=== PATIENT | male | born 1945 | race Caucasian/White ===

== ENCOUNTER 2023-04-17 09:43 | Outpatient (OUT) | payer OTHER, SELFPAY ==
[2023-04-17 10:48] LABS: Estimated GFR (African America >60 (>=60); Estimated GFR (Non-African Ame >60 (>=60)
--- NOTE | 2023-04-17 11:29 | CT_ITS ---
[address] [address] Patient Name: NICHOLE ALBA MRN: [id number] date: 1945 Sex: M Assigned Patient Location: LAB Current Patient Location: LAB Accession/Order Number: [id number] Exam Date: 04/17/2023 11:08 Report Date: 04/17/2023 12:29 At the request of: NON-STAFF PHYSICIAN Procedure: CT abdomen pelvis wo/w con EXAMINATION: CT abdomen pelvis wo/w con HISTORY: Hematuria R31.29, BPH w/urinary obstruction N40.1 COMPARISON: No relevant comparison available. TECHNIQUE: Axial, Coronal, and Sagittal images were created without and with non-ionic intravenous contrast material. Dose reduction techniques were achieved by using automated exposure control and/or adjustment of mA and/or kV according to patient size and/or use of iterative reconstruction technique. FINDINGS: LUNG BASES: Minimal dependent atelectasis. LIVER: No enlargement, atrophy, abnormal density, or significant focal lesion. BILIARY: No dilatation or calcification. PANCREAS: No lesion, fluid collection, ductal dilatation, or atrophy. SPLEEN: No enlargement or focal lesion. ADRENALS: No mass or enlargement. KIDNEYS: No mass, obstruction, or calcification. BOWEL/MESENTERY: Moderate colonic diverticulosis without evidence of acute diverticulitis. Nonobstructive bowel gas pattern. Normal appendix. AORTA/VASCULAR: No aortic aneurysm. Mild atherosclerosis RETROPERITONEUM: No mass or adenopathy. LYMPH NODES: No adenopathy. URINARY BLADDER: No visible focal wall thickening, lesion, or calculus. PELVIC ORGANS: No visible mass. Pelvic organs appropriate for patient age. ABDOMINAL WALL: No mass or hernia. BONES: No bony lesion or fracture. OTHER: Negative. IMPRESSION: No explanation for the patient's hematuria Moderate colonic diverticulosis Electronically authenticated by: LUPILLO SKELTON Date: 04/17/2023 12:29
[2023-04-18 04:07] LABS: PSA, Free 0.25 ng/mL; Prostate Specific Ag 4.5 ng/mL (0.0-4.0)
== END 2023-04-17 09:44 ==
LOC: LAB 09:43
PROVIDERS: PCP Nurse Practitioner Family
DX: R31.29 Other microscopic hematuria (principal); R97.20 Elevated prostate specific antigen [PSA]; Z80.42 Family history of malignant neoplasm of prostate; N40.1 Benign prostatic hyperplasia with lower urinary tract symptoms; K57.30 Diverticulosis of large intestine without perforation or abscess without bleeding
CPT/HCPCS: 36415; 74178; 82565; 84153; 84154; Q9967

== ENCOUNTER 2023-12-14 07:48 | Outpatient (OUT) | payer OTHER, SELFPAY ==
[2023-12-14 08:09] LABS: Hematocrit 46.1 % (42.0-54.0); Hemoglobin 14.9 g/dL (14.0-18.0); Mean Corpuscular HGB Conc 32.3 g/dL (29.9-35.2); Mean Corpuscular Hemoglobin 30.5 pg (25.9-34.0); Mean Corpuscular Volume 94.5 fL (80.0-94.0); Mean Platelet Volume 9.9 fL (9.5-13.5); Platelet Count 207 10^3/uL (150-450); Red Blood Count 4.88 10^6/uL (4.70-6.10); Red Cell Distribution Width 13.2 % (11.0-15.0); White Blood Count 18.3 10^3/uL (4.0-11.0)
[2023-12-14 08:37] LABS: Atypical Lymphocytes Abs Man 0.91; Basophils Abs Manual 0.18 10^3/uL (0.00-0.10); Eosinophils Absolute Manual 0.18 10^3/uL (0.00-0.70); Lymphocytes Absolute Manual 10.06 10^3/uL (1.20-3.80); Monocytes Absolute Manual 1.64 10^3/uL (0.30-0.80)
[2023-12-14 08:44] LABS: Alanine Aminotransferase 25 U/L (16-63); Alkaline Phosphatase 60 U/L (46-116); Anion Gap 14.9; Aspartate Amino Transferase 21 U/L (15-37); Bilirubin Total 1.1 mg/dL (0.2-1.0); Calcium 9.5 mg/dL (8.5-10.1); Carbon Dioxide 26.3 mmol/L (21.0-32.0); Chloride 103 mmol/L (98-107); Chol HDL Ratio 2.9; Cholesterol 182 mg/dL (<=200); Estimated GFR (African America >60 (>=60); Estimated GFR (Non-African Ame >60 (>=60); Globulin 3.9 g/dL; Glucose 94 mg/dL (74-106); HDL Cholesterol 63 mg/dL (40-60); Potassium 4.2 mmol/L (3.5-5.1); Sodium 140 mmol/L (136-145); Thyroid Stimulating Hormone 2.561 uIU/mL (0.358-3.740); Total Protein 7.9 g/dL (6.4-8.2); Triglycerides 67 mg/dL (<=150); VLDL CHOLESTEROL 13.4 mg/dL
== END 2023-12-14 07:49 | disposition home or self-care (01) ==
LOC: LAB 07:48
PROVIDERS: PCP Nurse Practitioner; Visit Provider Nurse Practitioner
DX: Z00.00 Encounter for general adult medical examination without abnormal findings (principal); R53.83 Other fatigue; R63.4 Abnormal weight loss; R10.32 Left lower quadrant pain; Z13.220 Encounter for screening for lipoid disorders; Z13.29 Encounter for screening for other suspected endocrine disorder; Z87.891 Personal history of nicotine dependence; Z68.23 Body mass index [BMI] 23.0-23.9, adult
CPT/HCPCS: 36415; 80053; 80061; 84443; 85007; 85027

== ENCOUNTER 2023-12-16 13:50 | Emergency (ER) | payer OTHER, SELFPAY ==
[2023-12-16] VITALS (34 sets, daily range): BP systolic 117–146; BP diastolic 68–92; PULSE 89–110; RESP 14–36; TEMP 36.9; O2SAT 83–98; BMI 22.4
--- OUTSIDE RECORDS SUMMARY | 2023-12-16 13:58 | XMS_ITS | CCD ---
Author Name Unknown Address [address] [facility] [address] [place] [address] Organization [facility] Care Team Providers Care [employer] Name Role Phone KIRSTIE CALDERÓN Primary Care Physician [phone] ARVIND, ROSENDA Admitting Unavailable KAITLYNN, KIRSTIE Primary Care Unavailable ARVIND, ROSENDA Attending Unavailable HOY, DR ORDAZ Attending Unavailable HOY, DR ORDAZ Consulting Unavailable MARIAM, DR ORDAZ Admitting Unavailable KAITLYNN, KIRSTIE Primary Care Unavailable KAITLYNN, KIRSTIE Primary Care Unavailable ANTHONY DOLAN, DR VIDYA Rice Attending Unavailtracee CRUZ JR, DR VIDYA Rice Consulting Unavailtracee CRUZ JR, DR VIDYA Rice Admitting Unavailabl e NickiMary Kate london Attending Unavailable WANG, Buddy Kasper Attending Unavailable ARVIND, ROSENDA Valderrama Attending Unavailable ARVIND, ROSENDA E Attending Unavailable ARVIND, ROSENDA E Attending Unavailable WANG, Buddy R Attending Unavailable WANG, Buddy R Admitting Unavailable ARVIND, ROSENDA E Admitting Unavailable ARVIND, ROSENDA E Attending Unavailable ARVIND, ROSENDA E Admitting Unavailable ARVIND, ROSENDA E Attending Unavailable Allergies Allergy Classification Reported Allergen(s) Allergy Type Date of Onset Reaction(s) Facility (1 source) No Known Medication Allergies; Translations: [No Known Medication Allergies] Propensity to adverse reactions (disorder) [facility] Repository Medications Completed/Discontinued Medications Medication Drug Class(es) Dates Sig (Normalized) Sig (Original) ciprofloxacin 500 mg oral tablet (2 sources) Quinolone Antimicrobial Start: 03-30-2023 take 1 tablet by mouth once daily Cipro 500 mg Tab 500 mg = 1 tab(s), Oral, Daily, Take 1 tablet the day before the procedure and 1 tablet after the procedure, # 2 tab(s), Refills(s) 0, Pharmacy: [facility]/pharmacy #[id number], 180, cm, 01/24/23 9:26:00 EDT, Height/Length Dosing, 75, kg, 01/24/23 9:26:00 EDT, Dc... Start Date: 03/30/23 Status: Ordered Problems Active Problems Problem Classification Problem Date Documented Date Episodic/Chronic Esophageal disorders (7 sources) Gastroesophageal reflux disease 02-12-2021 Chronic Genitourinary symptoms and ill-defined conditions (10 sources) Microscopic hematuria; Translations: [Other microscopic hematuria] Onset: 01-26-2022 Episodic Hyperplasia of prostate (9 sources) Benign prostatic hypertrophy with outflow obstruction; Translations: [Benign prostatic hyperplasia with lower urinary tract symptoms] Onset: 01-26-2022 Chronic Mood disorders (7 sources) Depressive disorder 02-12-2021 Chronic Other diseases of kidney and ureters (1 source) Urinary tract obstruction; Translations: [Other obstructive and reflux uropathy] Onset: 04-18-2023 Episodic Other screening for suspected conditions (not mental disorders or infectious disease) (15 sources) Raised prostate specific antigen; Translations: [Elevated prostate specific antigen [PSA]] Onset: 01-19-2022 Episodic Residual codes; unclassified (3 sources) Family history of cancer; Translations: [Family history of malignant neoplasm of prostate] Onset: 01-26-2022 Episodic Residual codes; unclassified (7 sources) Family history of prostate cancer 01-26-2022 Episodic Unclassified (3 sources) CONTACT W/AND (SUSP) EXPOS COVID-19; Translations: [CONTACT W/AND (SUSP) EXPOS COVID-19] Onset: 10-06-2021 Past or Other Problems Problem Classification Problem Date Documented Da te Episodic/Chronic Unclassified (1 source) CONTACT W/AND (SUSP) EXPOS COVID-19; Translations: [CONTACT W/AND (SUSP) EXPOS COVID-19] Onset: 10-01-2021 Results Test Name Value Interpretation Reference Range Facility [facility] 12-14-2023 Lab Reports [id number] .00TIFF Normal [facility] Ambulatory Visit Summaryon 0 12-12-2023 Ambulatory Visit Summary NICHOLE ALBA :1945 Visit Date:12/12/2023 Ambulatory Visit Instructions Your Diagnosis Wellness examination Screening for hyperlipidemia BMI 23.0-23.9, adult Former smoker Screening for thyroid disorder Fatigue Weight loss LLQ pain Your Care Team Attending Physician - Mary Kate Hester Primary Care Physician - Mary Kate Hester Procedures Performed Cystoscopy (04/18/2023), Tonsillotomy. Discharge Vitals Temperature (Tympanic) 36.9 ?C Heart Rate (Peripheral) 82 Respiratory Rate 18 Blood Pressure 118/80 Height 168.5 cm Height 66 in Weight 66.4 kg Weight 146.08 lb BMI 23.39 What to do next Scheduled Follow-Up Appointments Monday 8:40 AM EDT With: ARVIND CHANG, ROSENDA Valderrama Where: [facility] Family Medicine Office/Clini c Noteon 12-12-2023 Family Medicine Office/Clinic Note HPI Staff Braswell is a 78 year old male presenting to establish care Establish Care: History: Any previous diagnosis: BPH, depression, Gerd History of seeing any specialist: Dr velasquez-Urology When was your last doctors visit: Last provider: Kirstie Calderón Any recent labs: [facility] 1 year ago Health Maintenance UTD: Colonoscopy: no PSA: PSA Total: 4.1 ng/mL High (01/23/23 11:05:00) Acute: Current issues/complaints: Left ear having constant feeling of fullness to left ear. Pt states has had intermittent ear infections. Did have referral for ENT but something happened with his insurance so he was never able to go. Has new insurance. Pt would like to see ENT someone close to [place] GI: Onset 10 days ago started to having LLQ intermittent discomfort denies any nausea/diarrhea does c/o some constipation. Since has had intermittent low grade fever. Pt states he has lost 5 pounds over the last 2-3 weeks stopped exercising he feels fatigued all the time. Has been eating normally. Pt has never had a colonoscopy. History of Present Illness pt presents today to establish care. pt has c/o left ear feeling full. also for about 10 days having LLQ pain, fatigue, weight loss Review of Systems PHQ Score Initial Depression Screen Score: 0 SCORE ROS - Provider Constitutional: no fever, no chills, no sweats, no fatigue Respiratory: no shortness of breath, no cough, no orthopnea, no wheezing., left ear feels full Cardiovascular: no chest pain, no palpitations, no edema. Neurologic: no headache, no dizziness, no numbness, no weakness. GI: bloating, LLQ pain, constipation, weight loss Physical Exam Vitals & Measurements T: 36.9 ?C(Tympanic) HR: 82(Peripheral) RR: 18 BP: 118/80 SpO2: 99% HT: 66 in HT: 168.5 cm WT: 66.4 kg WT: 146.08 lb BMI: 23.39 General: alert, no acute distress ENMT: oral mucosa moist, no pharyngeal erythema or exudate Cardiovascular: regular rate and rhythm, normal peripheral perfusion Respiratory: Lungs CTA, respirations non labored Extremities: no deformity, no trauma Neurological: oriented x 4, LOC appropriate for age, CN II-XII intact, motor strength equal & normal bilaterally, speech normal Assessment/Plan 1. Wellness examination (Z00.00: Encounter for general adult medical examination without abnormal findings) pt presents today for wellness visit. labs ordered. is followed by Dr. Wang for PSA. pt has a few complaints today. pt will have labs done at a self pay lab and have results faxed to our office. RTC 3 months Ordered: ciprofloxacin, 500 mg = 1 tab(s), Oral, q12hr, X 7 day(s), # 14 tab(s), Refills(s) 0, Pharmacy: [facility]/pharmacy #[id number], 169.5, cm, 12/12/23 9:37:00 EST, Height/Length Dosing, 66.4, kg, 12/12/23 9:37:00 EST, Weight Dosing metronidazole, 500 mg = 1 tab(s), Oral, q8hr, X 7 day(s), # 21 tab(s), Refills(s) 0, Pharmacy: [facility]/pharmacy #[id number], 169.5, cm, 12/12/23 9:37:00 EST, Height/Length Dosing, 66.4, kg, 12/12/23 9:37:00 EST, Weight Dosing CBC w/ Auto Diff Comprehensive Metabolic Panel Lipid Panel Thyroid Stimulating Hormone 2. Cerumen impaction (H61.20: Impacted cerumen, unspecified ear) pt will use debrox for 1 week and return for nurse visit. if still feeling ear pressure after irrigation will refer to ENT. pt was supposed to be referred to ENT by previous PCP but something didn't go through with insurance and he never went. 3. Fatigue (R53.83: Other fatigue) pt c/o fatigue. does not even want to exercise anymore. Lab orders provided Ordered: ciprofloxacin, 500 mg = 1 tab(s), Oral, q12hr, X 7 day(s), # 14 tab(s), Refills(s) 0, [id number] 169.5, cm, 12/12/23 9:37:00 EST, Height/Length Dosing, 66.4, kg, 12/12/23 9:37:00 EST, Weight Dosing metronidazole, 500 mg = 1 tab(s), Oral, q8hr, X 7 day(s), # 21 tab(s), Refills(s) 0, [id number], 169.5, cm, 12/12/23 9:37:00 EST, Height/Length Dosing, 66.4, kg, 12/12/23 9:37:00 EST, Weight Dosing CBC w/ Auto Diff Comprehensive Metabolic Panel [facility] [place]ulatory Referral Lipid Panel Thyroid Stimulating Hormone 4. LLQ pain (R10.32: Left lower quadrant pain) pt c/o LLQ pain for about 10 days, also having low grade fever. Ordered: ciprofloxacin, 500 mg = 1 tab(s), Oral, q12hr, X 7 day(s), # 14 tab(s), Refills(s) 0, [id number], 169.5, cm, 12/12/23 9:37:00 EST, Height/Length Dosing, 66.4, kg, 12/12/23 9:37:00 EST, Weight Dosing metronidazole, 500 mg = 1 tab(s), Oral, q8hr, X 7 day(s), # 21 tab(s), Refills(s) 0, Pharmacy: [facility]/pharmacy #[id number], 169.5, cm, 12/12/23 9:37:00 EST, Height/Length Dosing, 66.4, kg, 12/12/23 9:37:00 EST, Weight Dosing CBC w/ Auto Diff Comprehensive Metabolic Panel [facility] [place] Referral Lipid Panel Thyroid Stimulating Hormone 5. Weight loss (R63.4: Abnormal weight loss) see above Ordered: ciprofloxacin, 500 mg = 1 tab(s), Oral, q12hr, X 7 day(s), # 14 tab(s), Refills(s) 0, Pharmacy: [facility]/pharmacy #[id number], 169.5, cm, 12/12/23 9 (more content not included)... Normal [facility] Comment on above: Result Comment: Elec tronically Signed By: Mary Kate Hester\.br\Date and Time Signed: 12/12/23 11:15 EST Physician Referralon 024 Physician Referral [id number]# 1.00TIFF Normal [facility] UroVysion Fish and Urine Cyt o ([facility])on 04-25-2023 UVFISH & UC Diagnosis Info Invalid Interpretation Code [facility] Comment on above: Result Comment: A:Ur ine,Urine:Bladder Wash Diagnosis Summary - Atypical urothelial cells with degenerative changes. Clinical correlation and follow up is recommended as clinically indicated. Adequate cellularity for evaluation. Diagnosis Summary - The UroVysion FISH study detected normal copy numbers for chromosomes 3, 7, 17, and 9p21. 196 cells were analyzed in this evaluation. No evidence of aneuploidy for chromosomes 3, 7, or 17 or deletion of the 9p21 locus was found in cells present in this specimen. This test does not rule out the possibility of a low grade non-invasive papillary urothelial carcinoma. These findings should be correlated with cytology and cystoscopy results.* CPT 37795, 64586. Microscopic Notes - Microscopic Notes - Abnormal cells 9p21 deletions: Abnormal cells aneploid events: Total cells analyzed: 196 Hematuria: Gross Description Site ID:A color Light Yellow fixative Alcohol Received 110 mls of clear light yellow fluid with the patient's name and, Urine on the vial. Electronically signed by : on: 04/25/2023 12:43:44 Performed By: #### 1 [id number] ####[facility] [id number] [place] [address] Consent for Procedure/Surger yon 04-19-2023 Consent for Procedure/Surgery [id number]# 1.00CD:127 Normal [facility] Patient Educationon 04-18-20 Patient Education Urology Hematuria, Adult Hematuria is blood in the urine. Blood may be visible in the urine, or it may be identified with a test. This condition can be caused by infections of the bladder, urethra, kidney, or prostate. Other possible causes include: ? Kidney stones. ? Cancer of the urinary tract. ? Too much calcium in the urine. ? Conditions that are passed from parent to child (inherited conditions). ? Exercise that requires a lot of energy. Infections can usually be treated with medicine, and a kidney stone usually will pass through your urine. If neither of these is the cause of your hematuria, more tests may be needed to identify the cause of your symptoms. It is very important to tell your health care provider about any blood in your urine, even if it is painless or the blood stops without treatment. Blood in the urine, when it happens and then stops and then happens again, can be a symptom of a very serious condition, including cancer. There is no pain in the initial stages of many urinary cancers. Follow these instructions at home: Medicines ? Take llvo-sko-aaeurpy and prescription medicines only as told by your health care provider. ? If you were prescribed an antibiotic medicine, take it as told by your health care provider. Do not stop taking the antibiotic even if you start to feel better. Eating and drinking ? Drink enough fluid to keep your urine pale yellow. It is recommended that you drink 3?4 quarts (2.8?3.8 L) a day. If you have been diagnosed with an infection, drinking cranberry juice in addition to large amounts of water is recommended. ? Avoid caffeine, tea, and carbonated beverages. These tend to irritate the bladder. ? Avoid alcohol because it may irritate the prostate (in males). General instructions ? If you have been diagnosed with a kidney stone, follow your health care provider's instructions about straining your urine to catch the stone. ? Empty your bladder often. Avoid holding urine for long periods of time. ? If you are female: ? After a bowel movement, wipe from front to back and use each piece of toilet paper only once. ? Empty your bladder before and after sex. ? Pay attention to any changes in your symptoms. Tell your health care provider about any changes or any new symptoms. ? It is up to you to get the results of any tests. Ask your health care provider, or the department that is doing the test, when your results will be ready. ? Keep all follow-up visits. This is important. Contact a health care provider if: ? You develop back pain. ? You have a fever or chills. ? You have nausea or vomiting. ? Your symptoms do not improve after 3 days. ? Your symptoms get worse. Get help right away if: ? You develop severe vomiting and are unable to take medicine without vomiting. ? You develop severe pain in your back or abdomen even though you are taking medicine. ? You pass a large amount of blood in your urine. ? You pass blood clots in your urine. ? You feel very weak or like you might faint. ? You faint. Summary ? Hematuria is blood in the urine. It has many possible causes. ? It is very important that you tell your health care provider about any blood in your urine, even if it is painless or the blood stops without treatment. ? Take jkov-jvp-hpuaqxj and prescription medicines only as told by your health care provider. ? Drink enough fluid to keep your urine pale yellow. This information is not intended to replace advice given to you by your health care provider. Make sure you discuss any questions you have with your health care provider. Document Revised: 06/16/2021 Document Reviewed: 06/16/2021 [employer] Patient Education ? 2022 [employer] Normal [facility] RAD - CT Reporton 04-18-2023 RAD - CT Report [id number] .00CD:127 Normal [facility] UroVysion Fish and Urine Cyt o ([facility])on 04-18-2023 [facility] Method of Extraction Bladder Wash Normal [facility] Comment on above: Performed By: #### 1 [id number] ####[facility] [id number] [place] [address] [facility] Number of Jars 1 Invalid Interpretation Code [facility] Comment on above: Performed By: #### 1 [id number] ####[facility] [id number] [place] [address] [facility] Specimen Bladder Wash Normal [facility] Comment on above: Performed By: #### 1 [id number] ####[facility] [id number] [place] [address] [facility] Type of Service Technical Only Normal [facility] Comment on above: Performed By: #### 1 [id number] ####[facility] [address] [place] [address] Urology Office/Clinic Noteon 04-18-2023 Urology Office/Clinic Note Chief Complaint Cysto HPI Staff Cysto ABX TAKEN, needs fish/cytol History of Present Illness Tests reviewed: PSA, CT Urogram I have reviewed the previous health record information and history for this patient from Dr. Wang. I have reviewed and verified the staff HPI to be accurate for this encounter. There have been no associated fever, chills, flank pain, or blood in the urine. Denies any urinary infections since last encounter. Review of Systems PHQ Score Initial Depression Screen Score: 0 ROS - Provider Constitutional: denies weight loss, denies hot flashes. Eyes: denies eye problems. Gastrointestinal: denies nausea, denies vomiting. Cardiovascular: denies chest pain or angina. Integumentary: no dryness Musculoskeletal: denies musculoskeletal symptoms. ENMT: denies otolaryngeal symptoms. Respiratory: no shortness of breath. Heme/Lymph: denies easy bleeding tendency, denies easy bruising tendency. Psychiatric: no confusion, no anxiety. Genitourinary: denies dysuria, denies hematuria, denies discharge, denies urinary frequency, denies urinary hesitancy, denies nocturia, denies incontinence, denies genital sores, denies decreased libido, and denies erectile dysfunction. Physical Exam Vitals & Measurements HR: 84(Peripheral) BP: 137/79 HT: 71 in HT: 180 cm WT: 75 kg WT: 165 lb BMI: 23.15 General Appearance: alert, no distress, well nourished, well developed male. Genitourinary: normal scrotum, normal testes, normal urethra, normal epididymis, normal vas deferens/spermatic cord. Flank Pain: none. Bladder: nonpalpable. Procedure Operative Information Anesthesia Type: Local Procedure: Local Cystoscopy Complications: None Surgical risks, benefits, details of the procedure have been explained to the patient. Full informed consent has been obtained. Intraoperative Information Prepped: Patient is brought back to the endoscopy suite. Patient is placed in supine position. Patient prepped in the usual fashion with Betadine solution. 2% Xylocaine Jelly is placed per Urethra. After waiting several minutes, the Cystoscope is introduced. The Prostatic Urethra is: bilobar obstruction, short. The Bladder: no bladder tumors _, Trabeculated: low-grade_ The Ureteral orifices: Show efflux of clear urine Specimens Removed: Bladder wash sent for FISH and Cytology test Removal: Cystoscope is removed. The patient tolerated it well. Postoperative Information Patient is discharged home with antibiotic coverage. Follow up arranged. Assessment/Plan 1. Elevated PSA (R97.20: Elevated prostate specific antigen [PSA]) PSA 01/23/2023 - 4.1 01/19/2022 - 3.8 (5.5%) 08/24/2021 - 4.53 01/29/2021 - 3.6 (6.7%) 07/25/2020 - 3.7 (6.8%) 07/13/2020 - 5.05 07/03/2020 - 6.41 -Will continue to monitor Follow up in 1 year with PSA with [facility] or sooner if needed. Pt understands and agrees with plan. 2. Family hx of prostate cancer (Z80.42: Family history of malignant neoplasm of prostate) Brother recently diagnosed with prostate CA 3. BPH with obstruction/lower urinary tract symptoms (N40.1: Benign prostatic hyperplasia with lower urinary tract symptoms) Pt is not currently taking any bladder/prostate medication. 4. Microhematuria (R31.29: Other microscopic hematuria) Pt was a smoker x 20 yrs but quit almost 40 yrs ago. UA at previous visit 01/24/23 showed large blood. Micro UA was positive. CT AP w/ and w/o contrast 04/17/23 - no renal mass, obstruction, or calcification; no visible focal wall thickening, lesion, or calculus Pt had cysto done IO today w/ no complications. Other obstructive and reflux uropathy (N13.8: Other obstructive and reflux uropathy) Follow-up No qualifying data available Patient Education Hematuria, Adult I, Veronica Bradley, personally scribed for Dr. Wang on 04/18/2023 14:54:00. . Documentation recorded by the ramosibVeronica valderrama, accurately reflects the services(s) I performed and decisions made by me. Authenticated by Dr. Wang on 04/18/2023 14:55:16. Problem List/Past Medical History Ongoing BPH with obstruction/lower urinary tract symptoms Depression Elevated PSA Family hx of prostate cancer GERD (gastroesophageal reflux disease) Microhematuria Historical No qualifying data Procedure/Surgical History Cystoscopy (04/18/2023), Tonsillotomy. Medications Cipro 500 mg Tab, 500 mg= 1 tab(s), Oral, Daily Allergies No Known Medication Allergies Social History Alcohol - Low Risk, 02/16/2021 Tobacco Former smoker, quit more than 30 days ago Tobacco Use:. Never Smokeless Tobacco Use:., 04/18/2023 Family History Cancer: Father. Hypertension: Brother. Prostate cancer: Brother. Immunizations Vaccine Date Status Comments SARS-CoV-2 (COVID-19) mRNAMUL.ORD![id number] 07/15/2022 Recorded SARSCoV2 mRNA(ykgyujaxz-beqw-y ucros) vac 02/14/2022 Recorded SARS-CoV-2 (COVID-19) mRNA BNT-162b2 vax (more content not included)... Normal [facility] Comment on above: Result Comment: Elec tronically Signed By: Buddy WANG MD\.br\Date and Time Signed: 04/18/23 14:55 EDT\.br\Electronically Co-Signed By: Veronica Bradley\.br\Date and Time Co-Signed: 04/18/23 14:54 EDT Coding Summary.on 01-28-2023 Coding Summary. CD:[id number] W w+PGhlYWQ+VM7IIXOuS18 fhYIyqR6vZ6LEWAsKYfea RIRZAHfRVuWzmiEoYO5vh XNjZXJu IC8+NX0wYNYpJqhqpHApt 9H4gUN6I94wkz4wSJwxtQ I8TZPyUcRgvemqb6tmlIa 6IDcuNmluOyBt GJZimH41PWZ1dZ70Vv04s IWemMClr6vphFk6YnRqSK VqFAC7nGieQOaxl1RlTIJ tB67qbALlv7I1 FOOnrVcxoYSsDpEkmKJ3p R4lWGksefakx7khtxhwGz i1va97lHYgo2K0iBX5C0L okhF7UEKrfEUx EgbbgHWJuL9jnkwte8six frbDfBjOSYuIVj5BCw7KC ChzRnuImRnAV79QFP8BZQ svzDjN0ZqYKZp oOubPwU1r4Q7Xo0MW5GAB jzsX2XXKAIHCQhnaMJ+PC 66hd39H9YcLqobMsm2GVD kCPE1eBH0pU6u WXGjZQsdd4X0wWG0Z6Uir lMfwp3ty8uqMIOtIIzsW9 6vtGRck5W3RKEtvHI0DVD obNqzUrVvlY02 Oyc+HSEylCbbr3IxPzsmp 4pia5dzaIm9FgcmWCZrwm ScbEynYLJ8r9FoRr3wICN orZN7bQZ1mX5o NjEcLkE0AIzpG863UxGdu OInRfgiF23jD8YleLF+PH RrAbq4UYIpoJhjVD4fE9Q hZGRpbmctbGVm tNzaDA3rSLNwaaivNVGua J5eECRnE8e3JqMdLxQ1GN wrK0DuJOTshxweJg56cF8 wMtFqOyM7YKtx X2AkvvJ3BXWmpCHhNZjoG YU1Z53kn1M7OQDgHZKaEB Y1uKI8qV7wzFqysjtdrOA mdDsgdmVydGlj UZkqLWclU332FHFurXlbG kNvZGluZyBEYXRlOiAgMD QvMDEvMjAyMzwvdGQ+PHR rFCE4iZvbAYGw jJKsNHezEi1jfHncrTmtJ P1dCNCmowvhZINozH8sSC IdoLGskLnqKQ0qYPNcyjo ms453LbRyQSY2 JVKtuBXxN8YrqO7hVlCkA DYbLMBuJ2AmpDBmZVscZ5 80OMgkKdI4XTDfsrAnZ0I sLWFsaWduOiB0 r7R4Lf4Wk7UjlbqxQ4Pzg NDpJzZwEwiqBAz7U3PqIk wvdHI+WL09OUTsMY93SSw 1EOC5uMgcRAgm CKLuL5BtrA4hEcIyIUGlS GRkOyc+PHRhYmxlIHdpZH RoPScxMDAlJyBzdHlsZT0 cBm5vZUHnZJGq uVzcfOCgZdUpo9zeYVNdG DzeKR8rbOwgH6KxpMR5BP Qdt5f6Zy74B72iP2ApkJF +CLKvdJE0kWE3 gZ9qHaOzFpW4VGvhK311F oIvtHUoXzoih9rrb7wckJ x5PnE9AHWatzGkfQsgWOU 8v4GzHl81G17n IHdpZHRoPSIxNSUiIHZhb Cjnkm4cxN4lPa8+PGNvbC S9fBA2kI3bFbCsQtH6DLl xN996KeFmhZFa Pagdj0wha1qyyNn4LfMeB VJfrnZvgCasPHN1q6MyZy 69A2DqvRlsp7LfIyx0ne9 0cUTxz4F1gLK2 Z6UeVRRxzrydrJXrgTjaQ K4vKUKlioiqQRNauU3uIH TwE6v5NvEcRjT9UGclL2C dtkK8JFJnvCLj OKRqkHSHnZ3jlhdnh3qzq lgzMeWwZERzOGu7LTy6HZ IihUzlCoOmLZG1SzY3THI 0yICjvT9rwYpj rjfhiJ5dUfv+WFO6sEYej VFHZV3iWzctgDY+PHRkIH V7mAemZPodUYLdeO7bTUR lY5t7XfXlHjD2 GXxhT7TqebT2KHEloPWwM QPokYTCcA0mdfzmk4liro vrRfOzIOXzNRq1KRg6UQK saWduOiBsZWZ0 TmL9PVI0cDEhmZ8beGrfl jdkaC2nEsi+QmlydGggRG J8FBf7F7YjDov4YRZchSo dGX7bkUBrUVyi Ph7jqVwtfCzbGQ5kXNRaf pryr816YyDue5bmOJYnjQ EuBQhhIYX2M96jr3X1YWE fSDMfMDN5eSY1 vM5fqFxkphyejMEsdMkvv tEfxEntYTffVIjdH888PC IvmBgdHeXsDOw4L8CnSvk 1HWAqgDgnWC1p nZOiJObzYi0lkFojzFniY G2kIMRapnrwb618DbKac6 mgPUWgtLZzKUvfTCS7D67 xn5U2YAAdLWLb DDL7xAQ8jN1frGaxlaxwc GVmdDsgdmVydGljYWwtYW vyT821OWBfsIcwEqFcyTm 6S2MzQjq2UEAx tShcJO0qiTDdNQsiLy3rw ArgkAiuDM4lOJBhwiepy5 02OoCmh0ajIOYsnUSbVAu pJKE3D65rg3Y0 XTHsUPLkXHU7hFZ4iI6zh GlnbjogbGVmdDsgdmVydG ovQRghVKihC843MEGzfMs nPlBhdGllbnQg GRxlEPp7O7WlHqzxeJO+P G09QZXiZC97eANisKRmp6 qssAi4OyBkMRVnPJI6dTu wJZtga5HiLPRi S43pvLWol5V2UALfsLonr NVeAjNkdWA2zE2uHDfrzh tga2jwcqjnIdmpc3lqae7 8mW80Z69qWYgo ZHRoPSIzMCUiIHZhbGlnb v3piE1nPs5+YQFmpXU8oZ E9zL4pPJYyOdD4ONzmW62 9InRvcCIvPjxj b0ewt5fmoQa1UfX1IUMog qYwhYbnCNE1t8KsPj50H0 9sIHdpZHRoPSIyMCUiIHZ itLdzof6cfF4x Ii8+VFPhrSE1wMQ7zI2qD iIwEnS4XZidL916TrVygO MrNnduS99aN1KwuCD+PHR rWrt2MUCxzJgb ZS6etROwFWvcOe1hYVS4Q bCnCdOxSJerQ3TuWMOmrh psjwufmAA7MJHlDCPeaQ5 4Cg5pbMjeJEYa iJAHlG6aplrrf8azxgapX nWcKFPpEXk6BXs5BPPlqB rvLlHkDZQ1WsZ3JAR0fGE syN1xhHxqkbzb iE6uB3PzPOCircciOn19h Y2xJbJnMyB7PMszKdn+Q1 VEZ0fJDWIVIBCESBNLXLM 6X6FdZgk9XTTs zBqnBQ1nsANmOLtvDn9fq GbxoRutJY9mKBOxpkprDG NqzV1iKVVdcGUsiAieNT3 iTVMqtodzw798 IhEhDLV6YZIynDPlI1Jtq M0bBxOnAZEdSCKzW2JudA ClMXumZ392QCkgGzL4PYC bhpFxW3AoWJFx bWzwWwY2f3I1Xf2kDs8lS A6vXZY5KA29TH62mDClt0 R8hEI9R3QbUZAhntacpkd auXR2XVGdOGAz bE60gNIiSHmxFr2yr9U5w 532JLGkOKNzcY56Gp4mqK hmFZCjeBYYuN8iyabhv4v vcjogIzAwMDAw CTs6SPo2FLYypXetXqQdP DR8JeO4YHA8rLFmfW8kjK trabhfvF9aUof+NzUgWWV ysjM4Q4RaPbp2 EWSxrFkaHD6pkSUmNIzbO u2mySxlnXsoWM8zAOWzbi hjNYNdgX5aDUDouGKfqQg lST8mPYGluoqa r980YaRxAQW0EROhtMPbS 5IogH0jOdOlJMCpVRHtO3 RfsKVdLFwfQ878SSwyQdA 4HDNssiTsE8Gd BYNruUpzKdE3t0O9Tj2JS HcfFD45QX37gLZeg7I6jG I8D5IzJWPvijfhcmxqtDO 1GAQqYCImoS56 gZWvORkwOi1zf0M8l545L SUtMOTfsK10Uz4ysYesAR BujCMWsD3ubxpvl5pjnvz gIzAwMDAwMDt0 RNk4QHQjqAenKhIeIWX0J nH7LDN9mAOztG0paEabox wooQ4mGzv+DIScKCHcj6L im4GnGS66HW75 U5TmBganpKWeiIK+PHRhY mxlIHdpZHRoPScxMDAlJy DkqDkgFO1xDw9nVICoDYS vbGxhcHNlOiBj p4dlTOIaTRgyQH7zkEtnS 4BhmVE0HUXxp2s8Tj05I9 3pM7SexMW+ODJjjSG5cUT 5lS3yWbHfVfY8 NHfgO565GwEvuNDuXxsqk 4fvt2wjuAx0LwHqFSGxhm KvyItwBIH2c1LlWi61F21 sIHdpZHRoPSIy YQOyLNLeeUnunl3moD7jH i8+BVYutJU0xUD2nC1iVt VhJsC8PCntQ171DhAknVN xJqssK21oZ9Ze dXA+OPVsXjl7QOFhpPysH X8sjASbKWacJx5yKHN3It TqYyWdWGslA8UnAPCwixk xkkzmcEM5DXXo HGPlrI75Jx3kvYvuOk1mN YLoEKU4BUYwaSTqS3LyeH 6lApFbOKBiOMQoN3YyzTE tUVaeV827YPbp CtC9UHHwabOdO2LzBRXjj WdvHmM3h3U8Zh9IqHkplS JmIA7wPfDrBGs2I5PgZgq 0GZUxcIfuUO7k lSCrGUwhCb3wuLyyuRxaF E4kTDZjcekpo640ZhIwm2 hvUMPykNJaODelCPS2P69 gw0A1QJJwHDAs ZFT4eXE7dL9lgEvoqwtvk GVmdDsgdmVydGljYWwtYW yrG899JCYmuBzoMnYSDqm 5Z2OuTac4VFSq vSytCV5wtQXeGEvdNy0vv RsevUwiWB4kIJRqrivph2 55SnNsd7ilQZXpxPLiGQo zPEN2L48op5J9 GHPiMRRrFXO2yYL0iF6jj GlnbjogbGVmdDsgdmVydG bhJKppIMiaB968BKQnkRk tKf2PNwe8P5Ad Crs8SDUrlGwhJR4tpLPrM NzpZe0jvEnluFiwEO3oBA Tjfwrje960XiKqb2otFCI wcHQgVGltZXM7 F34kh1O8OOYoTWJzRHZ2t QH4pP4ggRdhzsrtdLDpbB civqKvbDaaUIraWLslR54 6IHRvcDsnPlBh eWVyOjwvdGQ+KZ68xx83Y 9OhTgwuCtr0XJLrPUF1tL V5zY6hJFYwJOeul0M4dRP 6K2UboeAkqr0y r4reCCQd (more content not included)... Normal [facility] Coding Summary. CD:[id number] W w+PGhlYWQ+IF6ZQJLxH65 moNMpyW1nR1QDOQnBWipi YOTVZBwKQlUnscPqWJ2px XNjZXJu IC8+PO3wRLNtGqzqaBImk 1T1yHJ1H13tqa1kJIswuQ H9VOVfArGyqhpiw9lpoVq 6IDcuNmluOyBt GZShrW09TXV3vQ19Bj86e QDibNAcu5pgiRn2QiMfOJ HcEZV0oLhwCAdoy0NwUGE pF20czUAhk8Y9 DWRbjMhhlQSxYmHnaKM4x Q1aEXcxlkifa7egbeawFs g9yt66zPLbt6X8hWG1R8G fqsW9LBQdyXQa WxjcqNBZuW6erjjgb4dar utdAwEiZTEnJGw6TCh7IM WsfDaoFqAzSY07RME0MKR dirQxS4YgHYVa uMvcZzZ0f0N0Yr4WF2LUF fxcG3TRMLNUIUtgoDZ+PC 55oe15H2OjAbhgRpi9YZX cBHP3uRL5qC8k CAOfDDadw9U2mBR2U7Aio fPdlp6rv6vnQOYwSLiuG8 3mmJZbb7U0HTQpaHZ4REN ekHdfDnFytX89 Oyc+EHElwDbgl5ExHvsbl 3ctf3yizMn4XnaeWVEbbw GddJpaSXQ7i9MsBk9dAKI ouGH3tKS1kX9b WkGmKjS5DCopW777HzEgo FUgEfjoM09qQ4HygIB+PH KtLni6WUJqcCxlWV9iZ3O hZGRpbmctbGVm uHfzQB0qTZNxyahaHEFhb U1kMPHcY3g0DeUxXvB8LI ceL2YtLZXdaeaxRd35pV9 sQgArBwT0OSin H0LifjM4UCZhqYKeAZfqD TF2V83rk6F4BLCpOOCsHF H9cAX0xP0wgCmkpmfngPB mdDsgdmVydGlj QZgdAVhyG435AVPnsAceT kNvZGluZyBEYXRlOiAgMD QvMDEvMjAyMzwvdGQ+PHR dAQO1gVidRSVl tWPtYCkcTq1avGsekEoyZ F8iDGEwbftbGSIvcX8vZN BlkEKwjQmcOK0mZEStyrm id059VkGyVDH4 YNSbwXSzM9SssS6jFzNxS ETbBIGtX3LcjQZmTCwwP6 23GRmeCmB0NHUjvlLuP2Y sLWFsaWduOiB0 e3Z5Ud9Qe4OmcnvlP4Fmh AVoOhQnGbcoEIl1W0YvLq wvdHI+GS34YRLxLP79CFf 3YDN9cPsiTBxu UBQmJ6SznL0mYyJcJHOsB GRkOyc+PHRhYmxlIHdpZH RoPScxMDAlJyBzdHlsZT0 fHj1cUAUnMHUe gXcreZXmYxGza8rmFQMuY HstKX5gvAwwK2ZxtID1TI Lof3s0Ok44X58yL9XzqCK +EUEdjLA0nHO5 oR1gZnVdCzN4SJluU449Z aRtcSJsOvczj6byv4jxnP m4SgY4HUIufjSfaWlxZYM 4u5NhGc71D50s IHdpZHRoPSIxNSUiIHZhb Qfhis3ygK9eHv8+PGNvbC Z1kMX0iL7bGaEnXmH7VMr wJ545EuLqwYAd Cxaps7rfl4zeqFy3VnGdO ZHrrjDfiWisXHO9c8HjSe 43G7BkbXkas2AaLze8zc8 7lSJrb0E7rDN3 F2MwNNKehzwosXYqwQneA T4nUXHdtupwRMMfvI0pWF VjK4d8IiEaPsL6NIxtN5W jkhL2MGBazAOr HUNggJLHoJ0rbeqzi5vux wszSkNvYREwGKl2ZLw2EX OczTsnQxZgNSX0MqG4ZXE 7uHDtgT8rkBsw nhnnmZ2aQgb+TPB7kVRfw JYRCR8mKnftjAZ+PHRkIH H4qTvhFEnhUGUajK7cIWI hC8a9MoKtFvM7 TJmlX7HiqdR7FMWirEXsK HMzzLVEdH3rosydv5aqyi fdNjSgXHRtGQu8YVr5FUO saWduOiBsZWZ0 TgZ3UOL9gESjdS1jbRohl xpmjF1nXiy+QmlydGggRG T1YFg1T7NkDrd6MOYhqBg uCU7udKXbFGku Is1azUmukVoxGO6hTWSyv fdoy032LkWwz2zsJNNneW RdVClyFFT3J62gr0C0OVI lJSTbZID3sCS6 sE4esUmsegtnsDPqrHvud zEjeOgxIIjiQFrnZ739EH SydMbnOlDlBYb2G9GaQrx 5YOCgnUucFL9t ySIbJKckAa7duFcgcCluC D8yLWVydoobm139FhJyd3 ueHBEqnENmZDupURX6O75 ud2I4LRTyMCHt XLU8kYD5rU9nnEkqmpbya GVmdDsgdmVydGljYWwtYW zoH907PATfxFyjVbGyoSh 5B6SdMnd2YBQn gSieQZ1imFLeWGdtXc5rs LcfhMexZV4uBIYodsbol6 90HtHts7bzMTHgeOYnYQv xXYJ2G99we3E6 ZFEzWKVhQIU2hMN6bI4yz GlnbjogbGVmdDsgdmVydG xjOFsrDWreZ043DBGnqKi nPlBhdGllbnQg NSwdNPm8N4EfCksgmAW+P E51HVLaEQ85qTTmzFTrh0 xlgDr6TaUiBWHpUCR1pTd mSWndj1RuSYXa X36huSTil4T7ORNlhZghl MChTzJjkSE6zO7lGGdbpk beo0kzgnugRngsm8ocnf5 5kR52S98dHLvx ZHRoPSIzMCUiIHZhbGlnb z8rsQ9fIk4+XHScoRM9pZ T6lA0eLNOtFuB3VGwwV41 9InRvcCIvPjxj u0dse9yveXa8BtI3NVZsv iEdtKwmTTO3a2KqOm99F6 9sIHdpZHRoPSIyMCUiIHZ snLotxx8ojC8k Ii8+FLHbeAX2jDK3kJ2xF jHwLaV8CEjmT057XrGrlA OyJnohK16xJ2ChiCD+PHR zFir3GOKabUie TD7pzVKtCMtqYz8sELR5W bOiDzOdMTcqN9AyEMYcqt cggpubfRA7EUJwLBYfsA8 3Zd2eaXbqHZMo eSWDnF5aacihy8hmibwvM fWnGPFeLZs4YUx3SUCeoB agQyUiBQU1JuP0MTW6oHZ dlA3pjLsunjsf hI8nK5HiCEAbysnyLw17u Q3nGeSyNqT4OYssXub+Q1 FBB5hBCRWSJXSPPCCAWMR 2U0TuSbi0YJBf rAfiTM0rrJMhTZbkOv8hn CsayRhoFN3mEYVcbuzjSW TghS4iKAUmqNVrtCohDO6 kEMKinutfj850 HaLkCYF2EVGrzUUvB7Tvx M1hSyRbPAXqJOGiU0IiyN PrNQagT331SGnrMeZ6MWR wfzLnG8UyJDLs eWhmBsS8c0P5Gs3xNr7wQ N4eCCA6YW90MQ96bMWvl1 R6nQA1X1AcEDQeocebibt crDI7FMWkQYWl gE50cYNnZXcxOv8nm2J7n 348WYKnPJBgoD05Oz0kwR syLMZpnGCQmZ5bopcqe1o vcjogIzAwMDAw QEt5NJf3PEWjqMsuWsGaK GU7DmR5KDQ0yVXlfA3ebA pqlpmbbN1mGkh+NzUgWWV pojZ2Z6MtLzr3 YGEwcCwdIJ9yeENaFMqeI p0hgHasyAnhZC2sIKGftg koOYYgiI9fXGUcqVHsaGh xRG0fTVClpckm u258VyOsBJW5KUEcrZKsQ 8DjgL2aAiGkNAHlMQUmM6 MzjQInIClkC350VEyvXvU 8BIRqthXnE5Wk EUMcsUivCcH1o1J2Kv6XI IzmYJ88GM15zDPuo1I2nT T4H3LlQVLfejcthctwdGN 2OXSfYSKxdL54 kHCgQFweVz9hp5G1e958A SCvJSDemR13Dn8ycOoiLK OtwDXMqG1anezmc7lorxw gIzAwMDAwMDt0 GFy4JSKqjUnbZdPkYLE8W nD4BXH3sZOyuA6egWqjvo kzxB6eYep+XXSaVZWhv1G jf9YhSE71UJ99 Q4UlLwolxIDbkOH+PHRhY mxlIHdpZHRoPScxMDAlJy MmnDulOH3tFj4vGVGdHEW vbGxhcHNlOiBj k3seHDArUGmmDP2qjDtlX 7UguRL5FNAka4m6Ln35R4 1uQ2CxnBK+UTCzlBQ5fQE 5iB6jDfYjAbO2 ZVlhK983JfDiyIPjUkgwr 7yez3dotOj0JeUvNNBonu ChjPhuXIH1t9EfAe90D30 sIHdpZHRoPSIy DLEcSPYgoDwtce4xkP8hZ i8+NQZudNE1eTE1gK2aSy KwOoV9KBgkL776AmUscCU jTdmbW82sZ8Bw dXA+BRDnDhq6ZDYkwEigE P4laOOfQPfrKi0dPXA2Av BbZoFcCTzjT9TiYDGilzc rupdzhQK0DMMe UPGoyE29Ya3mvYlnOq3aQ FKqTMC1CCNrlXJyY7CcnL 9bDvKmXFCyUSRfA1QkjFO iYBqzN914YTgg LzV2QFRwrnSzD0GcDFJwd SzzVzN3m2W7Xm5YhPpvrX XxTM1sOgRlFWr8J1GsXqg 7TIVfpOojFU8d kCMaLEibCi1wpExsbFuuX F7aXZJlxyalg146TeGqb3 deKAMhyIQgALckTGT4P06 vj3B8YYEsRDKp YBM1lVA2dO5zkQphskmeo GVmdDsgdmVydGljYWwtYW rfC297ZEWvpFusLiLVAkg 6B2PdBgq7FFAe xOilFH2oiAQyCGcyCi9ua ZlxoKuwUT1mLLBuoetbm8 13WzSyf6ezYYFwaNJyNBz xKRE4E97wa2B9 EHOfTXTeYSN6oAY6wY3az GlnbjogbGVmdDsgdmVydG uqSOecQRwoO579GDSsmXh qOc0VUlq6A4Sl Dol9GUFfgRcfZW0quETxZ YzkVa7zaUvivTlgKX9bYG Fvglwhw728PgAia0tlAVF wcHQgVGltZXM7 G92ir3H5XBWzRJWrQBE5h LY9iQ0apQtyjudjjNZasA ddbzXokJqyJIzqITudO43 6IHRvcDsnPlBh eWVyOjwvdGQ+QB91ys33U 9OiTfhcQau7EVEiAAS9fM G4gS2iBSLaCEecc4Z5rZC 1P3XjzkNuoa7n q3trBDIz (more content not included)... Normal [facility] C Urineon 01-26-2023 Bacteria identified Cx Nom (U) Microbiology PROCEDURE: Urine Culture [R1] SOURCE: U Random BODY SITE: COLLECTED DATE/TIME: 01/24/2023 11:43 EDT RECEIVED DATE/TIME: 01/24/2023 22:19 EDT START DATE/TIME: 01/24/2023 22:19 EDT FREE TEXT SOURCE: ROSENDA SAMUELS PA-C, PA-C, ROSENDA Valderrama FINAL REPORTS Final Report [] Verified Date/Time: 01/26/2023 09:44 EDT 1,000 cfu/ml Mixed skin contaminants Performing Locations R1: This test was performed at: [facility], [address] [place] [address], [phone] , , Normal [facility] Comment on above: Performed By: #### [id number] ####[facility] [address] [place] [address] Patient Educationon 01-27-20 23 Patient Education Urology Hematuria, Adult Hematuria is blood in the urine. Blood may be visible in the urine, or it may be identified with a test. This condition can be caused by infections of the bladder, urethra, kidney, or prostate. Other possible causes include: ? Kidney stones. ? Cancer of the urinary tract. ? Too much calcium in the urine. ? Conditions that are passed from parent to child (inherited conditions). ? Exercise that requires a lot of energy. Infections can usually be treated with medicine, and a kidney stone usually will pass through your urine. If neither of these is the cause of your hematuria, more tests may be needed to identify the cause of your symptoms. It is very important to tell your health care provider about any blood in your urine, even if it is painless or the blood stops without treatment. Blood in the urine, when it happens and then stops and then happens again, can be a symptom of a very serious condition, including cancer. There is no pain in the initial stages of many urinary cancers. Follow these instructions at home: Medicines ? Take rlhm-vlg-ocbceml and prescription medicines only as told by your health care provider. ? If you were prescribed an antibiotic medicine, take it as told by your health care provider. Do not stop taking the antibiotic even if you start to feel better. Eating and drinking ? Drink enough fluid to keep your urine clear or pale yellow. It is recommended that you drink 3?4 quarts (2.8?3.8 L) a day. If you have been diagnosed with an infection, it is recommended that you drink cranberry juice in addition to large amounts of water. ? Avoid caffeine, tea, and carbonated beverages. These tend to irritate the bladder. ? Avoid alcohol because it may irritate the prostate (men). General instructions ? If you have been diagnosed with a kidney stone, follow your health care provider's instructions about straining your urine to catch the stone. ? Empty your bladder often. Avoid holding urine for long periods of time. ? If you are female: ? After a bowel movement, wipe from front to back and use each piece of toilet paper only once. ? Empty your bladder before and after sex. ? Pay attention to any changes in your symptoms. Tell your health care provider about any changes or any new symptoms. ? It is your responsibility to get your test results. Ask your health care provider, or the department performing the test, when your results will be ready. ? Keep all follow-up visits as told by your health care provider. This is important. Contact a health care provider if: ? You develop back pain. ? You have a fever. ? You have nausea or vomiting. ? Your symptoms do not improve after 3 days. ? Your symptoms get worse. Get help right away if: ? You develop severe vomiting and are unable take medicine without vomiting. ? You develop severe pain in your back or abdomen even though you are taking medicine. ? You pass a large amount of blood in your urine. ? You pass blood clots in your urine. ? You feel very weak or like you might faint. ? You faint. Summary ? Hematuria is blood in the urine. It has many possible causes. ? It is very important that you tell your health care provider about any blood in your urine, even if it is painless or the blood stops without treatment. ? Take kgcx-bkc-ekhtqwo and prescription medicines only as told by your health care provider. ? Drink enough fluid to keep your urine clear or pale yellow. This information is not intended to replace advice given to you by your health care provider. Make sure you discuss any questions you have with your health care provider. Document Released: 10/16/2006 Document Revised: 03/11/2020 Document Reviewed: 11/18/2017 [employer] Patient Education ? 2019 [employer]. 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 Additional DX: BPH & Microscopic hematuria. Pt was to get 6m PSA done around July of 2022. Not done. Had trouble scheduling at [facility]. PSA done 01/23/23- 4.1 No urology medications No Hx of Prostate Procedures. Occasional post void dribbling for yrs. Denies all other urinary complaints at this time. Review of Systems PHQ Score Initial Depression Screen Score: 0 no fever, chills, malaise, myalgia. no rash/lesions. no chest pain, palpitations, or SOB. no abdominal pain, nausea, vomiting. no unilateral calf swelling, redness, pain Physical Exam Vitals & Measurements HR: 84(Peripheral) RR: 16 BP: 121/78 HT: 71 in HT: 180 cm WT: 75 kg WT: 165 lb BMI: 23.15 General: nontoxic, NAD Mouth: moist mucosa Lungs: normal respiratory effort Cardio: regular rate, good distal perfusion Abdomen: nondistended, no suprapubic distention or tenderness, no CVA tenderness Neurologic: Grossly normal Skin: No rashes or suspicious lesions WIL: benign. no asymmetry, induration, nodules. Assessment/Plan not on any BPH meds. overall very satisfied w urinary status. 1. Elevated PSA (R97.20: Elevated prostate specific antigen [PSA]) PSA up slightly but nothing significant. Overall stable for the past few years. I discussed the pros and cons of PSA with the patient today. The various causes of PSA elevation were outlined, including prostate cancer, prostate enlargement, infection of the prostate, inflammation without infection, as well as prostate manipulation. The options regarding this PSA elevation, including prostate biopsy versus close monitoring, versus obtaining an MRI of the prostate were discussed. The patient has decided upon close monitoring. Will repeat PSA f&t in 6 mos and call pt with results. He will return in 1 yr with another PSA f&t. 01/23/2023 - 4.1 01/19/2022 - 3.8 (5.5%) 08/24/2021 - 4.53 01/29/2021 - 3.6 (6.7%) 07/25/2020 - 3.7 (6.8%) 07/13/2020 - 5.05 Ordered: E&M of Est. Patient Moderate 30-39 Min 62715 Urnls Dip Stick Auto w/o Microscopy POC 43778 2. Family hx of prostate cancer (Z80.42: Family history of malignant neoplasm of prostate) brother Ordered: E&M of Est. Patient Moderate 30-39 Min 14852 Urnls Dip Stick Auto w/o Microscopy POC 51601 3. Microhematuria (R31.29: Other microscopic hematuria) +lg hgb on UA today with no symptoms. will send for micro. if significant hematuria we recommend cysto, cyto, CTU. if no significant RBCs then no further action indicated at this time. Discussed options. The patient is aware that a distinct etiology of the hematuria may not be clear upon conclusion of the workup. Will initiate hematuria workup to include upper urinary tract imaging, as well as evaluation of the urinary cells with urine cytology and possible a FISH test. A cystoscopy will be scheduled to rule out lower urinary tract pathology. The rationale for this workup has been discussed, and all questions have been answered. Informed consent will be obtained. The risks and benefits for cystoscopy have been discussed. The risks include bleeding, infection, and irritation of the bladder and urinary channel, among others. The patient, after being informed of procedural details and after questions have been answered, wishes to proceed. Full informed consent has been obtained. Will order Local anesthesia. Ordered: E&M of Est. Patient Moderate 30-39 Min 81809 Urine Culture f/u 1 yr w PSA prior Follow-up With When Contact Information ROSENDA SAMUELS PA-C, URL Within 1 year Additional Instructions: Patient Education Hematuria, Adult Problem List/Past Medical History Ongoing BPH with obstruction/lower urinary tract symptoms Depression Elevated PSA Family hx of prostate cancer GERD (gastroesophageal reflux disease) Microhematuria Historical No qualifying data Procedure/Surgical History Tonsillotomy. Medications No active medications Allergies No Known Medication Allergies Social History Alcohol - Low Risk, 02/16/2021 Tobacco Former smoker, quit more than 30 days ago Tobacco Use:. Never Smokeless Tobacco Use:., 01/24/2023 Family History Cancer: Father. Hypertension: Brother. Prostate cancer: Brother. Immunizations Vaccine Date Status Comments SARS-CoV-2 (COVID-19) mRNAMUL.ORD![id number] 07/15/2022 Recorded SARSCoV2 mRNA(neerqfygw-mjwi-y ucros) vac 02/14/2022 Recorded SARS-CoV-2 (COVID-19) mRNA BNT-162b2 vax 07/28/2021 Recorded 2023-01-17: TPV70 influenza virus vaccine, inactivated 07/26/2021 Recorded SARS-CoV-2 (COVID-19) mRNA BNT-162b2 vax 12/28/2020 Recorded 2023-01-17: TPV70 SARS-CoV-2 (COVID-19) mRNA BNT-162b2 vax 12/07/2020 Recorded 2023-01-17: TPV70 influenza virus vaccine, inactivated 08/19/2020 Recorded influenza virus vaccine, inactivated 11/08/2019 Recorded Normal [facility] Comment on above: Result Comment: Elec tronically Signed By: ROSENDA SAMUELS PA-C\.br\Date and Time Signed: 01/26/23 17:05 EDT Ambulatory Visit Summaryon 0 01-24-2023 Ambulatory Visit Summary NICHOLE ALBA :1945 Visit Date:01/24/2023 Ambulatory Visit Instructions Your Diagnosis Elevated PSA Family hx of prostate cancer Microhematuria Tests Performed Urnls Dip Stick Auto w/o Microscopy POC 60685 Your Care Team Attending Physician - ROSENDA SAMUELS PA-C Primary Care Physician - KIRSTIE CALDERÓN CNP Procedures Performed Tonsillotomy. Discharge Vitals Heart Rate (Peripheral) 84 Respiratory Rate 16 Blood Pressure 121/78 Height 180 cm Height 71 in Weight 75 kg Weight 165 lb BMI 23.15 What to do next Scheduled Follow-Up Appointments Monday 8:30 AM EDT With: ARVIND CHANG, ROSENDA Valderrama Where: [facility] Normal [facility] URINALYSISOrdered By: Natalya Hernandez on 01-24-2023 Bilirubin Ql (U) Negative (01/24/23 11:43 AM) Normal Negative [facility] UA Auto SS Clarity (U) Clear (01/24/23 11:43 AM) Normal Clear [facility] UA Auto SS Color (U) Yellow (01/24/23 11:43 AM) Normal Yellow [facility] UA Auto SS Epithelial cells.squamous LM.HPF (Urine sed) [#/Area] 0-2 /HPF Normal 0-2/HPF [facility] UA Aut o SS Glucose Test strip (U) [Mass/Vol] Negative (01/24/23 11:43 AM) Normal Negative [facility] UA Auto SS Hemoglobin Ql (U) 2+ *ABN* (01/24/23 11:43 AM) Invalid Interpretation Code Negative [facility] UA Auto SS Ketones (U) [Mass/Vol] Negative (01/24/23 11:43 AM) Normal Negative [facility] UA Auto SS Gering.plasma/Lithiu m.RBC (Bld) [Mass ratio] 4-20 /HPF Normal 0-3/HPF [facility] UA Auto SS Mucus Ql (Urine sed) Trace (01/24/23 11:43 AM) Normal [facility] UA Auto SS Nitrite Ql (U) Negative (01/24/23 11:43 AM) Normal Negative [facility] UA Auto SS pH (U) 6.5 *NA* (01/24/23 11:43 AM) Invalid Interpretation Code 5.0 - 9.0 [facility] UA Auto SS Protein (U) [Mass/Vol] Negative (01/24/23 11:43 AM) Normal Negative [facility] UA Auto SS Specific gravity (U) [Rel density] 1.025 *NA* (01/24/23 11:43 AM) Invalid Interpretation Code 1.005 - 1.030 [facility] UA Auto SS UA Spec Desc Random Urine (01/24/23 11:43 AM) Normal [facility] UA Auto SS Urobilinogen Qn (U) 0.9574561 {Mamadou'U}/dL Normal 0.0 - 1.0 EU/dL [facility] UA Auto SS WBC Auto Ql (U) Negative (01/24/23 11:43 AM) Normal Negative [facility] UA Auto SS WBC LM.HPF (Urine sed) [#/Area] 0-5 /HPF Normal 0-5/HPF [facility] UA Auto SS Urinalysison 01-24-2023 Bilirubin Ql (U) Negative Normal Negative [facility] Comment on above: Performed By: #### 1 [id number] ####[facility] [address] [place] [id number] Clarity (U) CLEAR Normal Clear [facility] Comment on above: Performed By: #### 1 [id number] ####[address] [address] Color (U) YELLOW Normal Yellow [facility] Comment on above: Performed By: #### 1 [id number] ####[address] [address] Epithelial cells.squamous LM.HPF (Urine sed) [#/Area] 0-2 Normal 0-[address] [facility] Comment on above: Performed By: #### 1 [id number] ####[address] [address] Glucose Test strip (U) [Mass/Vol] Negative Normal Negative [facility] Comment on above: Performed By: #### 1 [id number] ####[address] [address] Hemoglobin Ql (U) 2+ Abnormal Negative [facility] Comment on above: Performed By: #### 1 [id number] ####[address] [address] Ketones (U) [Mass/Vol] Negative Normal Negative [facility] Comment on above: Performed By: #### 1 [id number] ####[address] [address] Gering.plasma/Lithiu m.RBC (Bld) [Mass ratio] 4-20 Normal 0-3 [facility] Comment on above: Performed By: #### 1 [id number] ####[facility] [address] [place] [address] Mucus Ql (Urine sed) TRACE Normal [facility] Comment on above: Performed By: #### 1 [id number] ####[address] [address] Nitrite Ql (U) Negative Normal Negative [facility] Comment on above: Performed By: #### 1 [id number] ####[address] [address] pH (U) 6.5 [pH] Invalid Interpretation Code 5.0-9.0 [facility] Comment on above: Performed By: #### 1 [id number] ####[address] [address] Protein (U) [Mass/Vol] Negative Normal Negative [facility] Comment on above: Performed By: #### 1 [id number] ####[address] [address] Specific gravity (U) [Rel density] 1.025 Invalid Interpretation Code 1.005-1.030 [facility] Comment on above: Performed By: #### 1 [id number] ####[address] [address] Type of Urine collection method Random Urine Normal [facility] Comment on above: Performed By: #### 1 [id number] ####[address] [address] Urobilinogen Qn (U) 0.2 {Mamadou'U}/dL Normal 0.0-1.0 [facility] Comment on above: Performed By: #### 1 [id number] ####[address] [address] WBC Auto Ql (U) Negative Normal Negative [facility] Comment on above: Performed By: #### 1 [id number] ####[address] [address] WBC LM.HPF (Urine sed) [#/Area] 0-5 Normal 0-5 [facility] Comment on above: Performed By: #### 1 [id number] ####[facility] [address] [place] [address] Ambulatory Visit Summaryon 0 01-23-2023 Ambulatory Visit Summary NICHOLE ALBA :1945 Visit Date:01/23/2023 Ambulatory Visit Instructions Your Care Team Attending Physician - ROSENDA SAMUELS PA-C Primary Care Physician - KIRSTIE CALDERÓN CNP Procedures Performed Tonsillotomy. What to do next Scheduled Follow-Up Appointments Monday 9:15 AM EDT With: ROSENDA SAMUELS PA-C Where: [facility] CHEMISTRYOrdered By: SYSTEM SYSTEM on 01-23-2023 Prostate specific Ag [Mass/Vol] 4.1 ng/mL High 0.1 - 3.5 ng/mL [facility] Remisol PSA Totalon 01-23-2023 Prostate specific Ag [Mass/Vol] 4.1 ng/mL High 0.1-3.5 [facility] Comment on above: Result Comment: The concentration of PSA determined by different manufacturers can vary due to differences in assay methods and reagent specificity. Values obtained from different assay methods cannot be used interchangeably. The methodology used for this result was chemiluminescence using [employer] PSA reagent. Performed By: #### 1 [id number] ####[facility] [facility] [address] [place] [address] PSA, FREE AND TOTAL RATIOon 01-20-2022 % Free PSA 5.5 % Normal [facility] Comment on above: Result Comment: The table below lists the probability of prostate cancer for men with non-suspicious WIL results and total PSA between 4 and 10 ng/mL, by patient age (Bowen et al, MARICHUY 1998, 279:1542). % Free PSA 50-64 yr 65-75 yr 0.00-10.00% 56% 55% 10.01-15.00% 24% 35% 15.01-20.00% 17% 23% 20.01-25.00% 10% 20% >25.00% 5% 9% Please note: Bowen et al did not make specific recommendations regarding the use of percent free PSA for any other population of men. Performed By: #### P SAFREE #### [facility] [address] [address] [address] Lola Hobbs Prostate specific Ag [Mass/Vol] 3.8 ng/mL Normal 0.0-4.0 [facility] Comment on above: Result Comment: Lupe NIELSON methodology. . According to the [employer], Serum PSA should decrease and remain at undetectable levels after radical prostatectomy. The AUA defines biochemical recurrence as an initial PSA value 0.2 ng/mL or greater followed by a subsequent confirmatory PSA value 0.2 ng/mL or greater. Values obtained with different assay methods or kits cannot be used interchangeably. Results cannot be interpreted as absolute evidence of the presence or absence of malignant disease. Performed By: #### P SAFREE #### [facility] [address] [address] [address] Lola Hobbs PSA, Free 0.21 ng/mL Normal N/A [facility] Comment on above: Result Comment: Lupe NIELSON methodology. Performed By: #### P SAFREE #### [facility] [address] [place] [address] Dr. Lola Hobbs [facility]on SARS-CoV-2 (COVID-19) RNA ROBERTO+probe Ql (Unsp spec) Not detected Normal NOT DETECTED [facility] Comment on above: Result Comment: This test is not yet approved or cleared by the [place] FDA. When there are no FDA-approved or cleared tests available, and other criteria are met, FDA can make tests available under an emergency access mechanism called an Emergency Use Authorization (EUA). The EUA for this test is supported by the [employer] Operator of Health and Human Service's (HHS's) declaration that circumstances exist to justify the emergency use of in vitro diagnostics for the detection and/or diagnosis of the virus that causes COVID-19. This EUA will remain in effect (meaning this test can be used) for the duration of the COVID-19 declaration justifying emergency of IVDs, unless it is terminated or revoked by FDA (after which the test may no longer be used). When diagnostic testing is negative, the possibility of a false negative should be considered in the context of a patient's recent exposures and the presence of clinical signs and symptoms consistent with SARS-CoV-2. Performed By: #### [facility] #### [facility] [address] [address] [address] Lola Hobbs Vital Signs Date Time Vital Sign Value Performing Clinician Soha france 04-18-2023 14:11-0400 Blood Pressure Location Buddy WANG [facility] 04-18-2023 14:11-0400 Diastolic blood pressure 79 mm[Hg] Buddy WANG [facility] 04-18-2023 14:11-0400 Heart rate 84 /min Buddy WANG [facility] 04-18-2023 14:11-0400 Systolic blood pressure 137 mm[Hg] Buddy WANG [facility] 01-24-2023 09:24-0400 Blood Pressure Location ROSENDA ARVIND [facility] 01-24-2023 09:24-0400 Diastolic blood pressure 78 mm[Hg] ROSENDA ARVIND [facility] 01-24-2023 09:24-0400 Heart rate 84 /min ROSENDA ARVIND [facility] 01-24-2023 09:24-0400 Respiratory rate 16 /min ROSENDA ARVIND [facility] 01-24-2023 09:24-0400 Systolic blood pressure 121 mm[Hg] ROSENDA ARVIND [facility] 01-26-2022 11:52-0400 Blood Pressure Location ROSENDA SAMUELS [facility] 01-26-2022 11:52-0400 Diastolic blood pressure 64 mm[Hg] ROSENDA SAMUELS [facility] 01-26-2022 11:52-0400 Heart rate 68 /min ROSENDA SAMUELS [facility] 01-26-2022 11:52-0400 Respiratory rate 16 /min ROSENDA SAMUELS [facility] 01-26-2022 11:52-0400 Systolic blood pressure 128 mm[Hg] ROSENDA SAMUELS [facility] [place] Encounters Encounter Date Encounter Type Care Provider Facility Start: 01-31-2024 ambulatory ROSENDA Ramirezi ty:[facility] Start: 12-12-2023 End: 12-13-2023 ambulatory Mary Kate L Nicki Facility:[facility] Start: 12-11-2023 ambulatory Mary Kate Nicki Facility:[facility] Start: 04-18-2023 End: 04-19-2023 ambulatory Buddy WANG Facility:[facility] Start: 04-18-2023 End: 04-19-2023 ambulatory Buddy WANG Facility: [facility] Start: 04-18-2023 End: 04-18-2023 Lab Drop off Buddy WANG [facility] Start: 04-18-2023 End: 04-18-2023 Patient encounter procedure Buddy Kasper WANG [facility] Start: 01-24-2023 End: 01-25-2023 ambulatory ROSENDA E ARVIND Facility:[facility] Start: 01-24-2023 End: 01-24-2023 Lab Drop off ROSENDA E ARVIND [facility] Start: 01-24-2023 End: 01-25-2023 ambulatory ROSENDA E ARVIND Facility:[facility] Start: 01-24-2023 End: 01-24-2023 Patient encounter procedure ROSENDA E ARVIND [facility] Start: 01-23-2023 End: 01-24-2023 ambulatory ROSENDA E ARVIND Facility:[facility] Start: 01-23-2023 End: 01-24-2023 ambulatory ROSENDA E ARVIND Facility:[facility] Start: 01-23-2023 End: 01-23-2023 Lab Drop off ROSENDA E ARVIND [facility] Start: 01-23-2023 End: 01-23-2023 Patient encounter procedure [facility] Start: 08-23-2022 ambulatory ROSENDA ARVIND Facility : Start: 01-26-2022 End: 01-26-2022 Patient encounter procedure [facility]DA E ARVIND [facility] Start: 01-19-2022 End: 01-20-2022 ambulatory KIRSTIE CALDERÓN Facility:[facility] Start: 10-01-2021 End: 10-01-[address] SUSHMA BECERRA Facility:[facility] Procedures Date Procedure Procedure Detail Performing Clinician Start: 04-18-2023 Cystoscopy Buddy JHON MONTGOMERY Incision of tonsil ROSENDAISAMAR SAMUELS Immunizations Immunization Date Immunization Notes Care Provider Dexter leavitt 07-15-2022 SARS-CoV-2 (COVID-19 ) [id number] ROSENDA SAMUELS [facility] 02-14-2022 SARS-CoV-2 mRNA (tuyertknbwb-jsgy-qobof se) vaccine ROSENDA SAMUELS [facility] 07-28-2021 SARS-CoV-2 (COVID-19 ) mRNA BNT-162b2 vax ROSENDA SAMUELS [facility] Comment on above: Result Comment: 2022: [id number] 07-26-2021 influenza virus vaccine, unspecified formulation ROSENAD SAMUELS [facility] 12-28-2020 SARS-CoV-2 (COVID-19 ) mRNA BNT-162b2 vax ROSENDA ARVIND [facility] Comment on above: Result Comment: 2022: [id number] 12-07-2020 SARS-CoV-2 (COVID-19 ) mRNA BNT-162b2 vax ROSENDA ARVIND [facility] Comment on above: Result Comment: 2022: [id number] 08-19-2020 influenza virus vaccine, unspecified formulation ROSENDA ARVNID [facility] 11-08-2019 influenza virus vaccine, unspecified formulation ROSENDA ARVIND [facility] Payers Date Payer Category Payer Medicare [id number] 2021 Medicare [id number] 1957 Medicare [id number] 1957 Self-pay 1957 Unknown [id number] 1945 Unknown [id number] 2.16.84 [id number] 1945 Unknown [id number] 2.16.84 [id number] 1945 Unknown [id number] 2.16.84 [id number] 1945 Unknown [id number] 2.16.8 [id number] 1945 Unknown [id number] 2.16.8 [id number] 1945 Unknown [id number] 2.16.8 [id number] 1945 Unknown [id number] 2.16.8 [id number] 1945 Unknown [id number] 2.16.8 [id number] 1945 Unknown [id number] 2.16.8 [id number] 1945 Unknown [id number] 2.16.8 [id number] 1945 Unknown [id number] 2.16.8 [id number] Social History Date Type Detail Facility Start: 01-26-2022 End: 04-18-2023 Tobacco smoking status Ex-smoker (finding) [facility] Tobacco smoking status Never [facility] Sex Assigned At Male [place] [facility] Functional Status Date Assessment Result Facility 04-18-2023 Functional Status N/A [facility] 01-24-2023 Functional Status N/A [facility] Clinical Notes 01-26-2022 to 04-18-2023 Note Date & Type Note Facility 04-18-2023 Hospital Discharge instructions Patient Education 04/18/2023 14:50:40 Hematuria, Adult Hematuria, Adult Hematuria is blood in the urine. Blood may be visible in the urine, or it may be identified with a test. This condition can be caused by infections of the bladder, urethra, kidney, or prostate. Other possible causes include: Kidney stones. Cancer of the urinary tract. Too much calcium in the urine. Conditions that are passed from parent to child (inherited conditions). Exercise that requires a lot of energy. Infections can usually be treated with medicine, and a kidney stone usually will pass through your urine. If neither of these is the cause of your hematuria, more tests may be needed to identify the cause of your symptoms. It is very important to tell your health care provider about any blood in your urine, even if it is painless or the blood stops without treatment. Blood in the urine, when it happens and then stops and then happens again, can be a symptom of a very serious condition, including cancer. There is no pain in the initial stages of many urinary cancers. Follow these instructions at home: Medicines Take oshl-jxb-jgswucj and prescription medicines only as told by your health care provider. If you were prescribed an antibiotic medicine, take it as told by your health care provider. Do not stop taking the antibiotic even if you start to feel better. Eating and drinking Drink enough fluid to keep your urine pale yellow. It is recommended that you drink 3 4 quarts (2.8 3.8 L) a day. If you have been diagnosed with an infection, drinking cranberry juice in addition to large amounts of water is recommended. Avoid caffeine, tea, and carbonated beverages. These tend to irritate the bladder. Avoid alcohol because it may irritate the prostate (in males). General instructions If you have been diagnosed with a kidney stone, follow your health care provider's instructions about straining your urine to catch the stone. Empty your bladder often. Avoid holding urine for long periods of time. If you are female: ?After a bowel movement, wipe from front to back and use each piece of toilet paper only once. ?Empty your bladder before and after sex. Pay attention to any changes in your symptoms. Tell your health care provider about any changes or any new symptoms. It is up to you to get the results of any tests. Ask your health care provider, or the department that is doing the test, when your results will be ready. Keep all follow-up visits. This is important. Contact a health care provider if: You develop back pain. You have a fever or chills. You have nausea or vomiting. Your symptoms do not improve after 3 days. Your symptoms get worse. Get help right away if: You develop severe vomiting and are unable to take medicine without vomiting. You develop severe pain in your back or abdomen even though you are taking medicine. You pass a large amount of blood in your urine. You pass blood clots in your urine. You feel very weak or like you might faint. You faint. Summary Hematuria is blood in the urine. It has many possible causes. It is very important that you tell your health care provider about any blood in your urine, even if it is painless or the blood stops without treatment. Take vfvh-dvx-ocgglpo and prescription medicines only as told by your health care provider. Drink enough fluid to keep your urine pale yellow. This information is not intended to replace advice given to you by your health care provider. Make sure you discuss any questions you have with your health care provider. Document Revised: 06/16/2021 Document Reviewed: 06/16/2021 Elsevier Patient Education 2022 [employer]. [facility] 01-26-2022 Hospital Discharge instructions Patient Education 01/26/2022 12:14:28 Prostate Cancer Screening Prostate Cancer Screening The prostate is a walnut-sized gland that is located below the bladder and in front of the rectum in males. The function of the prostate (prostate gland) is to add fluid to semen during ejaculation. Prostate cancer is the second most common type of cancer in men. A screening test for cancer is a test that is done before cancer symptoms start. Screening can help to identify cancer at an early stage, when the cancer can be treated more easily. The recommended prostate cancer screening test is a blood test called the prostate-specific antigen (PSA) test. PSA is a protein that is made in the prostate. As you age, your prostate naturally produces more PSA. Abnormally high PSA levels may be caused by: Prostate cancer. An enlarged prostate that is not caused by cancer (benign prostatic hyperplasia, BPH). This condition is very common in older men. A prostate gland infection (prostatitis). Medicines to assist with hair growth, such as finasteride. Depending on the PSA results, you may need more tests, such as: A physical exam to check the size of your prostate gland. Blood and imaging tests. A procedure to remove tissue samples from your prostate gland for testing (biopsy). Who should have screening? Screening recommendations vary based on age. If you are younger than age 40, screening is not recommended. If you are age 40 54 and you have no risk factors, screening is not recommended. If you are younger than age 55, ask your health care provider if you need screening if you have one of these risk factors: ?Being of -Greek descent. ?Having a family history of prostate cancer. If you are age 55 69, talk with your health care provider about your need for screening and how often screening should be done. If you are older than age 70, screening is not recommended. This is because the risks that screening can cause are greater than the benefits that it may provide (risks outweigh the benefits). If you are at high risk for prostate cancer, your health care provider may recommend that you have screenings more often or start screening at a younger age. You may be at high risk if you: Are older than age 55. Are -Greek. Have a father, brother, or uncle who has been diagnosed with prostate cancer. The risk may be higher if your family member's cancer occurred at an early age. What are the benefits of screening? There is a small chance that screening may lower your risk of dying from prostate cancer. The chance is small because prostate cancer is typically a slow-growing cancer, and most men with prostate cancer from a different cause. What are the risks of screening? The main risk of prostate cancer screening is diagnosing and treating prostate cancer that would never have caused any symptoms or problems (overdiagnosis and overtreatment). PSA screening cannot tell you if your PSA is high due to cancer or a different cause. A prostate biopsy is the only procedure to diagnose prostate cancer. Even the results of a biopsy may not tell you if your cancer needs to be treated. Slow-growing prostate cancer may not need any treatment other than monitoring, so diagnosing and treating it may cause unnecessary stress or other side effects. A prostate biopsy may also cause: Infection or fever. A false negative. This is a result that shows that you do not have prostate cancer when you actually do have prostate cancer. Questions to ask your health care provider When should I start prostate cancer screening? What is my risk for prostate cancer? How often do I need screening? What type of screening tests do I need? How do I get my test results? What do my results mean? Do I need treatment? Contact a health care provider if: You have difficulty urinating. You have pain when you urinate or ejaculate. You have blood in your urine or semen. You have pain in your back or in the area of your prostate. You have trouble getting or maintaining an erection (erectile dysfunction, ED). Summary Prostate cancer is a common type of cancer in men. The prostate (prostate gland) is located below the bladder and in front of the rectum. This gland adds fluid to semen during ejaculation. Prostate cancer screening may identify cancer at an early stage, when the cancer can be treated more easily. The prostate-specific antigen (PSA) test is the recommended screening test for prostate cancer. Discuss the risks and benefits of prostate cancer screening with your health care provider. If you are age 70 or older, screening is likely to lead to more risks than benefits (risks outweigh the benefits). This information is not intended to replace advice given to you by your health care provider. Make sure you discuss any questions you have with your health care provider. Document Released: 07/27/2018 Document Revised: 09/28/2018 Document Reviewed: 07/27/2018 [employer] Patient Education 2020 [employer] Follow Up Care 08/26/2021 12:50:07 With:ROSENDA SAMUELS PA-C, URL Address: When:1 year [facility] Evaluation + Plan note Future Appointments Appointment Date:02/01/2023 11:00:00 AM Scheduled Provider:ROSENDA SAMUELS PA-C Location:[facility] Appointment Type:URO Office Visit Diagnostic Tests PendingPSA Free & Total 01/26/22 [facility] Evaluation + Plan note Future Appointments Appointment Date:01/24/2023 09:15:00 AM Scheduled Provider:ROSENDA SAMUELS PA-C Location:[facility] Appointment Type:URO Office Visit [facility] Evaluation + Plan note Future Appointments Appointment Date:01/30/2024 08:30:00 AM Scheduled Provider:ROSENDA SAMUELS PA-C Location:[facility] Appointment Type:URO Office Visit Diagnostic Tests PendingPSA Total 01/24/23 [facility] Evaluation + Plan note Future Appointments Appointment Date:01/30/2024 08:30:00 AM Scheduled Provider:ROSENDA SAMUELS PA-C Location:[facility] Appointment Type:URO Office Visit Diagnostic Tests PendingUrine Culture 01/24/23 [facility] Evaluation + Plan note Future Appointments Appointment Date:01/30/2024 08:30:00 AM Scheduled Provider:ROSENDA SAMUELS PA-C Location:[facility] Appointment Type:URO Office Visit [facility] Evaluation + Plan note Future Appointments Appointment Date:01/30/2024 08:30:00 AM Scheduled Provider:ROSENDA SAMUELS PA-C Location:[facility] Appointment Type:URO Office Visit Diagnostic Tests PendingUroVysion Fish and Urine Cyto ([facility]) 04/18/23 [facility] Hospital course Narrative No data available for this section [facility] Hospital Discharge instructions No data available for this section [facility] Progress note No data available for this section [facility] Summary Purpose Family History No Family History Records FoundNo Family History Records Found Advance Directives No Advanced Directives Records FoundNo Advanced Directives Records Found Additional Source Comments (unrecognized sect ion and content) No Status Records FoundNo Status Records Found INFORMATION SOURCE (unrecogn ized section and content) DATE CREATED AUTHOR 08/24/2022 [facility] DATE CREATED AUTHOR AUTHOR'S ORGANIZ ATION 12/16/2023 [facility] Patient Care team informatio n (unrecognized section and content) Personnel Name: KIRSTIE CALDERÓN CNP Address: Address: [address] [place] [address] Personnel Name: KAITLYNN PAYNE KIRSTIE S Address: Address: [address] [place] [address] Personnel Name: KIRSTIE CALDERÓN CNP Danielle Address: Address: [address] [place] [address] Personnel Name: KAITLYNN PAYNE KIRSTIE Santos Address: Address: [address] [place] [address] Personnel Name: KAITLYNNZARI PAYNEKIRSTIE Address: Address: [address] [place] [address] Personnel Name: KAITLYNNZARI PAYNEKIRSTIE Address: Address: [address] [place] [address] FOR RECORDS PERTAINING TO PATIENTS WHO ARE OR HAVE BEEN ENROLLED IN A CHEMICAL DEPENDENCY/SUBSTANCEABUSE PROGRAM, SOME INFORMATION MAY BE OMITTED. This clinical summary was aggregated from multiple sources. Caution should be exercised in using it in the provision of clinical care. This summary normalizes information from multiple sources, and as a consequence, information in this document may materially change the coding, format and clinical context of patient data. In addition, data may be omitted in some cases. CLINICAL DECISIONS SHOULD BE BASED ON THE PRIMARY CLINICAL RECORDS. [facility] [employer] provides no warranty or guarantee of the accuracy or completeness of information in this document.
--- NOTE | 2023-12-16 14:04 | XR_ITS ---
The [address] [address] Patient Name: NICHOLE ALBA MRN: [id number] date: 1945 Sex: M Assigned Patient Location: ER Current Patient Location: ER Accession/Order Number: [id number] Exam Date: 12/16/2023 14:20 Report Date: 12/16/2023 14:40 At the request of: STUART HART Procedure: XR chest 1V EXAM: XR chest 1V HISTORY: Weakness and fatigue. COMPARISON: None. TECHNIQUE: AP erect portable chest radiograph performed. FINDINGS: The trachea is midline. The heart size is normal. The cardio mid sternal silhouette and hilar shadows are normal. The lung volumes are normal. The lung john are clear. There is no pneumothorax. The bony structures are osteopenic. There is no acute osseous abnormality. XR/XR chest 1V IMPRESSION: There is no acute cardiopulmonary process. Electronically authenticated by: MINDA ALVAREZ Date: 12/16/2023 14:40
--- NOTE | 2023-12-16 14:04 | ECG_ITS ---
The [facility] Test Date: 2023-12-16 Pat Name: NICHOLE ALBA Department: Room: - Gender: Male Can Doffer: : 1945 Requested By: [id number] Order Number: [id number] Reading MD: SULMA CARBAJAL Measurements Intervals [place] Rate: 105 P: 70 [place]: 168 QRS: 69 QRSD: 82 T: 73 QT: 338 QTc: 399 Interpretive Statements 1120 Sinus tachycardia 9140 abnormal rhythm ECG No previous ECG available for comparison Electronically Signed On 12-17-2023 7:37:36 EST by SULMA CARBAJAL
--- NOTE | 2023-12-16 14:05 | ED.WEAKNESS1 ---
HPI - Weakness General Chief complaint: Weakness Stated complaint: WEAKNESS Time Seen by Provider: 12/16/23 13:54 Source: patient Mode of arrival: walk-in History of Present Illness HPI Narrative: 78-year-old male presents for weakness. Weakness started today. No fever or vomiting. A few days ago he was diagnosed with diverticulitis and was prescribed Cipro and Flagyl. He did not have a CAT scan. He does not complain of abdominal pain or dysuria or back pain. He does not complain of any pain at all. He just feels weak. Related Data Home Medications Medication Instructions Recorded Confirmed ciprofloxacin HCl 500 mg tablet 500 mg PO BID 12/16/23 12/16/23 metronidazole 500 mg tablet 500 mg PO .Q8HR 12/16/23 12/16/23 Allergies Allergy/AdvReac Type Severity Reaction Status Date / Time No Known Drug Allergies Allergy Verified 12/16/23 14:00 Review of Systems ROS Narrative A ten point review of systems is negative except as noted above. Exam Narrative Exam Narrative: Nurses note and vital signs reviewed and patient is not hypoxic. General: The patient appears well and in no apparent distress. Patient is resting comfortably on cart. Skin: Warm, dry, no pallor noted. There is no rash noted. Head: Normocephalic, atraumatic Eye: Normal conjunctiva, no drainage Ears, Nose, Mouth, and Throat: oral mucosa is moist. Nares patent. Cardiovascular: Regular Rate and Rhythm Respiratory: Patient is in no distress, no accessory muscle use, lungs are clear to auscultation, no wheezing, rales or rhonchi Back: non-tender GI: no tenderness to palpation, no masses appreciated. No rebound, guarding, or rigidity noted. Musculoskeletal: The patient has no evidence of calf tenderness, no pitting edema, symmetrical pulses noted bilaterally Neurological: A&O, normal speech Psychiatric: Cooperative Constitutional Vital Signs, click to edit/add: Last Vital Signs Temp 98.5 F 12/16/23 13:54 Pulse 104 H 12/16/23 18:00 Resp 19 12/16/23 18:00 BP 138/72 12/16/23 18:00 Pulse Ox 97 12/16/23 18:00 O2 Del Method Room Air 12/16/23 14:05 Course Vital Signs Vital signs: Vital Signs Temperature 98.5 F 12/16/23 13:54 Pulse Rate 107 H 12/16/23 13:54 Respiratory Rate 22 12/16/23 13:54 Blood Pressure 146/92 H 12/16/23 13:54 Pulse Oximetry 95 12/16/23 13:54 Oxygen Delivery Method Room Air 12/16/23 13:54 Temperature 98.5 F 12/16/23 13:54 Pulse Rate 104 H 12/16/23 18:00 Respiratory Rate 19 12/16/23 18:00 Blood Pressure 138/72 12/16/23 18:00 Pulse Oximetry 97 12/16/23 18:00 Oxygen Delivery Method Room Air 12/16/23 14:05 MDM - Weakness MDM Narrative Medical decision making narrative: His workup including CT of his belly is negative except for a WBC of 19,000. Cause uncertain. CT scan does not show any evidence of diverticulitis. Urinalysis is negative. His vital signs are essentially normal. He reports that he has only been eating broth for the last 2 or 3 days because he was told to do so by his PCP. He will return to a regular diet. Treatment diagnosis and follow-up were discussed with the patient. Differential Diagnosis Differential diagnosis: Likely anemia and dehydration Lab Data Attestation: I reviewed the patient's lab results. Labs: Lab Results 12/16/23 12/16/23 Range/Units 14:12 15:10 WBC 19.6 H (4.0-11.0) 10^3/uL RBC 4.76 (4.70-6.10) 10^6/uL Hgb 14.8 (14.0-18.0) g/dL Hct 44.6 (42.0-54.0) % MCV 93.7 (80.0-94.0) fL MCH 31.1 (25.9-34.0) pg MCHC 33.2 (29.9-35.2) g/dL RDW 12.8 (11.0-15.0) % Plt Count 206 (150-450) 10^3/uL MPV 9.8 (9.5-13.5) fL Seg Neuts % (Manual) 45.0 Lymphocytes % (Manual) 50.0 (20.5-60.0) % Monocytes % (Manual) 4.0 (1.7-12.0) % Eosinophils % (Manual) 1.0 (0.9-7.0) % Basophils % (Manual) 0.0 L (0.2-2.0) % Neutrophils # (Manual) 8.82 H (1.4-6.5) 10^3/uL Lymphocytes # (Manual) 9.80 H (1.20-3.80) 10^3/uL Monocytes # (Manual) 0.78 (0.30-0.80) 10^3/uL Eosinophils # (Manual) 0.19 (0.00-0.70) 10^3/uL Basophils # (Manual) 0.00 (0.00-0.10) 10^3/uL Smudge Cells Seen Sodium 140 (136-145) mmol/L Potassium 3.7 (3.5-5.1) mmol/L Chloride 101 (98-107) mmol/L Carbon Dioxide 20.5 L (21.0-32.0) mmol/L Anion Gap 22.2 BUN 19.0 H (7.0-18.0) mg/dL Creatinine 1.02 (0.70-1.30) mg/dL Est GFR ( Amer) >60 (>=60) Est GFR (Non-Af Amer) >60 (>=60) BUN/Creatinine Ratio 18.6 Glucose 98 (74-106) mg/dL Calcium 9.0 (8.5-10.1) mg/dL Troponin I High Sens 5.1 (4.0-76.1) pg/mL Urine Color Lt. yellow (YELLOW) Urine Clarity Clear (CLEAR) Urine pH 5.5 (5.0-9.0) Ur Specific [place] 1.020 (1.005-1.025) Urine Protein Negative (NEG/TRACE) mg/dL Urine Glucose (UA) Negative (NEGATIVE) mg/dL Urine Ketones >=80 A (NEGATIVE) mg/dL Urine Occult Blood Moderate A (NEGATIVE) Urine Nitrite Negative (NEGATIVE) Urine Bilirubin Negative (NEGATIVE) Urine Urobilinogen 0.2 (0.2-1.0) EU/dL Ur Leukocyte Esterase Negative (NEGATIVE) Urine RBC 2-5 A (0-2) #/HPF Urine WBC 0-2 A (NONE SEEN) #/HPF Ur Squamous Epith Cells Rare (NONE/RARE) #/LPF Urine Crystals None seen (None Seen) #/HPF Urine Bacteria Trace A (NONE SEEN) #/HPF Urine Casts None seen (NONE SEEN) #/LPF Urine Mucus None seen (NONE SEEN) Influenza Type A Ag Negative Influenza Type B Ag Negative SARS-CoV-2 Ag (CV2AG) Negative (NEGATIVE) Imaging Data CT scan - abdomen: Radiologist's impression: ITS Impressions Chest X-Ray 12/16/23 14:04 IMPRESSION: There is no acute cardiopulmonary process. Electronically authenticated by: MINDA ALVAREZ Date: 12/16/2023 14:40 Abdomen/Pelvis CT 12/16/23 16:55 IMPRESSION: No bowel obstruction or acute renal pathology. Diverticulosis, without acute diverticulitis. Normal appendix. Additional nonacute findings, as described above. Electronically authenticated by: NAZIA MARCH Date: 12/16/2023 18:31 Discharge Plan Discharge Chief Complaint: Weakness Clinical Impression: Generalized weakness Patient Disposition: Home, Self-Care Time of Disposition Decision: 18:37 Condition: Good Mode of Transportation: Private Vehicle Prescriptions / Home Meds: No Action ciprofloxacin HCl 500 mg tablet 500 mg PO BID metronidazole 500 mg tablet 500 mg PO .Q8HR Instructions: Weakness (ED) Stand Alone Forms: Portal Instructions Referrals: GAMA RODAS [Primary Care Provider] - 1 week
[2023-12-16] MEDS: 0.9 % SODIUM CHLORIDE 500 ML IV (14:20)
[2023-12-16 14:23] LABS: Hematocrit 44.6 % (42.0-54.0); Hemoglobin 14.8 g/dL (14.0-18.0); Mean Corpuscular HGB Conc 33.2 g/dL (29.9-35.2); Mean Corpuscular Hemoglobin 31.1 pg (25.9-34.0); Mean Corpuscular Volume 93.7 fL (80.0-94.0); Mean Platelet Volume 9.8 fL (9.5-13.5); Platelet Count 206 10^3/uL (150-450); Red Blood Count 4.76 10^6/uL (4.70-6.10); Red Cell Distribution Width 12.8 % (11.0-15.0); White Blood Count 19.6 10^3/uL (4.0-11.0)
[2023-12-16 14:33] LABS: Influenza Virus A Antigen Negative; Influenza Virus B Antigen Negative; Internal Control Within Normal Limits; SARS-CoV-2 Ag NEGATIVE (NEGATIVE)
[2023-12-16 14:39] LABS: Anion Gap 22.2; BUN Creatinine Ratio 18.6; Carbon Dioxide 20.5 mmol/L (21.0-32.0); Chloride 101 mmol/L (98-107); Estimated GFR (African America >60 (>=60); Estimated GFR (Non-African Ame >60 (>=60); Glucose 98 mg/dL (74-106); Potassium 3.7 mmol/L (3.5-5.1); Sodium 140 mmol/L (136-145); Troponin I High Sensitivity 5.1 pg/mL (4.0-76.1)
[2023-12-16 15:11] LABS: Eosinophils Absolute Manual 0.19 10^3/uL (0.00-0.70); Monocytes Absolute Manual 0.78 10^3/uL (0.30-0.80); Segmented Neut Absolute Manual 8.82 10^3/uL (1.4-6.5); Smudge Cells SEEN
[2023-12-16 15:32] LABS: Bilirubin Urine NEGATIVE (NEGATIVE); Blood Urine MODERATE (NEGATIVE); Clarity Urine CLEAR (CLEAR); Color Urine LT. YELLOW (YELLOW); Glucose Urine UA NEGATIVE (NEGATIVE); Ketones Urine >=80 mg/dL (NEGATIVE); Leukocyte Esterase Urine NEGATIVE (NEGATIVE); Nitrite Urine NEGATIVE (NEGATIVE); Protein Urine NEGATIVE (NEG/TRACE); Urobilinogen Urine 0.2 EU/dL (0.2-1.0); pH Urine 5.5 (5.0-9.0)
[2023-12-16 15:44] LABS: Bacteria Urine TRACE #/HPF (NONE SEEN); Cast Seen? NONE SEEN #/LPF (NONE SEEN); Crystals Seen? None Seen #/HPF (None Seen); Mucus Urine NONE SEEN (NONE SEEN); Squamous Epithelial Cell Urine RARE #/LPF (NONE/RARE); WBC Urine 0-2 #/HPF (NONE SEEN)
--- NOTE | 2023-12-16 16:55 | CT_ITS ---
[address] [address] Patient Name: NICHOLE ALBA MRN: [id number] date: 1945 Sex: M Assigned Patient Location: ER Current Patient Location: ER Accession/Order Number: [id number] Exam Date: 12/16/2023 17:20 Report Date: 12/16/2023 18:31 At the request of: STUART HART Procedure: CT abdomen pelvis w con EXAM: CT abdomen pelvis w con REASON FOR EXAM: Male, 78 years, Recent diagnosis of diverticulitis, WBC 18. TECHNIQUE: Computed tomography of the abdomen and pelvis is performed in the axial projection from the lung bases to the pubic symphysis. Sagittal and coronal reconstructed images are performed. Dose reduction techniques were achieved by using automated exposure control and/or adjustment of mA and/or KVP according to patient size and/or use of iterative reconstruction technique. A total of 100 mL Omnipaque 300 IV contrast was given. Study was performed without oral contrast. COMPARISON: 04/17/2023 FINDINGS: Lung bases: The lung bases are clear. There is no pleural effusion. The visualized portions of the heart are unremarkable. Liver: There are several low-attenuation lesions within the liver, the largest within the right lobe which exhibits nodular enhancement suggesting a hemangioma, measuring approximately 1.8 cm in diameter. The other lesions may represent cysts or hemangiomas. Gallbladder: The gallbladder is normal. Spleen: The spleen is normal. Pancreas: The pancreas is normal. Adrenal glands: The adrenal glands are normal bilaterally. Right kidney: The kidney is normal in size. There is a small cyst in the superior pole of the right kidney. There is no renal calculus or hydronephrosis. Left kidney: The kidney is normal in size. There is no renal calculus or hydronephrosis. Stomach: The stomach is normal. Small bowel: The small bowel is normal. Large bowel: There are multiple diverticula in the left colon. No acute inflammatory changes are seen to suggest acute diverticulitis. There is a moderate amount of stool seen throughout the colon. Appendix: The appendix is visualized, and is normal. Aorta: There are mild atherosclerotic calcifications of the abdominal aorta. IVC: The IVC is normal. Retroperitoneum: Normal retroperitoneum. Bladder: The bladder is normal. Pelvic organs: The prostate gland is slightly enlarged. Abdominal wall: Normal abdominal wall. Osseous structures: Degenerative changes are seen in the visualized spine. CT/CT abdomen pelvis w con IMPRESSION: No bowel obstruction or acute renal pathology. Diverticulosis, without acute diverticulitis. Normal appendix. Additional nonacute findings, as described above. Electronically authenticated by: NAZIA MARCH Date: 12/16/2023 18:31
== END 2023-12-16 18:46 | disposition home or self-care (01) ==
PROVIDERS: Emergency Provider Emergency Medicine; PCP Nurse Practitioner
DX: R53.1 Weakness (principal); K57.30 Diverticulosis of large intestine without perforation or abscess without bleeding
CPT/HCPCS: 36415; 71045; 74177; 80048; 81001; 84484; 85007; 85027; 87804; 87811; 93005; 99285; Q9967

== ENCOUNTER 2024-04-09 12:31 | Outpatient (OUT) | payer OTHER, SELFPAY ==
--- NOTE | 2024-04-09 12:40 | MR_ITS ---
The [address] [address] Patient Name: NICHOLE ALBA MRN: [id number] date: 1945 Sex: M Assigned Patient Location: LAB Current Patient Location: Accession/Order Number: [id number] Exam Date: 04/09/2024 13:05 Report Date: 04/10/2024 13:14 At the request of: SERENITY GARCIA Procedure: MR head/brain wo con MR head/brain wo con, 04/09/2024 1:05 PM EDT INDICATION: Otalgia Left H92.02 [asymmetrical hearing loss, left tinnitus COMPARISON: There is no appropriate prior study for comparison. TECHNIQUE: Multiplanar, multisequential MRI images of brain were obtained without injection of contrast. The patient refused injection of contrast. FINDINGS: This study is limited due to lack of injection of contrast. The cerebral sulci as well as ventricular system are appropriate for age. There is no restricted diffusion. Few hyperintensities on T2 and FLAIR images in the escalona radiata and centrum semiovale with sparing of U fibers are nonspecific, statistically most likely consistent with microvascular ischemic changes. There is no intracranial mass, mass effect, midline shift, or large hemorrhage. Left temporal arachnoid cyst is noted measuring 2.3 x 1 cm (transverse, AP). No abnormality of the cochlea vestibular nerves or semicircular canals is noted. Normal flow-void in the intracranial vessels is noted. Mucosal thickening within the left maxillary sinus is noted. The visualized portions of orbits, mastoid air cells as well as remainder of paranasal sinuses are unremarkable. MR/MR head/brain wo con IMPRESSION: No acute intracranial process is noted. No abnormality of the cochlea vestibular nerves or semicircular canals is noted. Electronically authenticated by: KYLEIGH SOUTH Date: 04/10/2024 13:14
[2024-04-09 13:00] LABS: Estimated GFR (African America >60 (>=60); Estimated GFR (Non-African Ame >60 (>=60)
== END 2024-04-09 12:32 | disposition home or self-care (01) ==
LOC: LAB 12:31
PROVIDERS: PCP Nurse Practitioner; Visit Provider Otolaryngology
DX: H92.02 Otalgia, left ear (principal); H90.3 Sensorineural hearing loss, bilateral
CPT/HCPCS: 36415; 70551; 82565

== ENCOUNTER 2024-10-15 14:02 | Outpatient (OUT) | payer OTHER, SELFPAY ==
--- NOTE | 2024-10-15 14:05 | XR_ITS ---
[address] [address] Patient Name: NICHOLE ALBA MRN: [id number] date: 1945 Sex: M Assigned Patient Location: RAD Current Patient Location: [facility] Accession/Order Number: [id number] Exam Date: 10/15/2024 14:10 Report Date: 10/16/2024 12:18 At the request of: GAAM RODAS Procedure: XR hip LT min 2V PROCEDURE: XR hip LT min 2V HISTORY: Left Hip Pain, Low Back Pain COMPARISON: CT abdomen pelvis 12/16/2023 FINDINGS: BONES:Small degenerative ossified along superior rim of the acetabulum. No fracture, dislocation, or significant joint space narrowing. No articular surface irregularity. SOFT TISSUES:No visible soft tissue swelling. EFFUSION:None visible. OTHER: Negative. XR/XR hip LT min 2V IMPRESSION: 1. Minimal degenerative changes of the left hip. Electronically authenticated by: RONNY HALL Date: 10/16/2024 12:18
--- NOTE | 2024-10-15 14:05 | XR_ITS ---
The [address] [address] Patient Name: NICHOLE ALBA MRN: [id number] date: 1945 Sex: M Assigned Patient Location: [facility] Current Patient Location: Accession/Order Number: [id number] Exam Date: 10/15/2024 14:10 Report Date: 10/16/2024 12:16 At the request of: GAMA RODAS Procedure: XR lumbar spine min 4V EXAMINATION: XR lumbar spine min 4V HISTORY: Left Hip Pain, Low Back Pain COMPARISON: No relevant comparison available. FINDINGS: BONES: Minimal convex curvature of lumbar spine. No fracture, spondylolisthesis, bone lesion. Mild-moderate degenerative facet arthropathy L3-4 through L5-S1. DISC SPACES: Multilevel mild narrowing/wedging. PARASPINOUS: Negative. No paraspinous abnormality is seen. OTHER: Negative. XR/XR lumbar spine min 4V IMPRESSION: 1. Moderate degenerative changes of lumbar spine. No appreciable acute abnormality or significant change. Electronically authenticated by: RONNY HALL Date: 10/16/2024 12:16
--- OUTSIDE RECORDS SUMMARY | 2024-10-15 14:21 | XMS_ITS | CCD ---
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 Name Role Phone KIRSTIE CALDERÓN Primary Care Physician PATY SAMUELS Admitting Unavailable KIRSTIE CALDERÓN Primary Care Unavailable PATY SAMUELS Attending Unavailable MARIAM, DR ORDAZ Attending Unavailable MARIAM, DR ORDAZ Consulting Unavailable MARIAM, DR ORDAZ Admitting Unavailable KIRSTIE CALDERÓN Primary Care Unavailable KIRSTIE CALDERÓN Primary Care Unavailable ANTHONY DOLAN, DR VIDYA Rice Attending Unavailtracee KELLY JR, DR VIDYA Rice Consulting Unavailtracee KELLY JR, DR VIDYA Rice Admitting Unavailabl e Mary Kate Caceres Primary Care Physician [phone] VIK BARNES Attending Unavailable ROSS, ALYSSA E Referring Unavailable TIMMIS, SERENITY H Attending Unavailable ROSS, ALYSSA E Referring Unavailable TIMMIS, SERENITY H Attending Unavailable TIMMIS, SERENITY H Attending Unavailable ARVIND, PATY E Admitting Unavailable ARVIND, PATY E Attending Unavailable Nicki, Mary Kate L Attending Unavailable Nicki, Mary Kate L Admitting Unavailable Nicki, Mary Kate L Attending Unavailable Nicki, Mary Kate L Attending Unavailable Nicki, Mary Kate L Attending Unavailable Nicki, Mary Kate L Attending Unavailable Nicki, Mary Kate L Attending Unavailable Nicki, Mary Kate L Attending Unavailable ARVIND, PATY E Attending Unavailable ARVIND, PATY E Attending Unavailable Allergies Allergy Classification Reported Allergen(s) Allergy Type Date of Onset Reaction(s) Facility (1 source) No Known Medication Allergies; Translations: [No Known Medication Allergies] Propensity to adverse reactions (disorder) [facility] Repository Medications Current Medications Medication Drug Class(es) Dates Sig (Normalized) Sig (Original) fluticasone propionate 0.05 mg/actuat metered dose nasal spray (3 sources) Corticosteroid Start: 01-15-2024 Flonase 0.05 mg/inh [place] 2 spray(s), Nasal, Daily, 16 gram, Refill(s) 0, each nostril, [facility]/pharmacy #[id number], 170, cm, 01/15/24 11:25:00 EDT, Height/Length Dosing, 65.1, kg, 01/15/24 11:25:00 EDT, Weight Dosing Start Date: 01/15/24 Status: Ordered Completed/Discontinued Medications Medication Drug Class(es) Dates Sig (Normalized) Sig (Original) ciprofloxacin 500 mg oral tablet (2 sources) Quinolone Antimicrobial Start: 03-30-2023 take 1 tablet by mouth once daily Cipro 500 mg Tab 500 mg = 1 tab(s), Oral, Daily, Take 1 tablet the day before the procedure and 1 tablet after the procedure, # 2 tab(s), Refills(s) 0, [id number] 180, cm, 01/24/23 9:26:00 EDT, Height/Length Dosing, 75, kg, 01/24/23 9:26:00 EDT, Dc... Start Date: 03/30/23 Status: Ordered Problems Active Problems Problem Classification Problem Date Documented Da te Episodic/Chronic Abdominal pain (4 sources) Left lower quadrant pain 12-12-2023 Episodic Esophageal disorders (11 sources) Gastroesophageal reflux disease 02-12-2021 Chronic Genitourinary symptoms and ill-defined conditions (15 sources) Microscopic hematuria; Translations: [Other microscopic hematuria] Onset: 2 Episodic Hyperplasia of prostate (14 sources) Benign prostatic hypertrophy with outflow obstruction; Translations: [Benign prostatic hyperplasia with lower urinary tract symptoms] Onset: 2 Chronic Malaise and fatigue (8 sources) Asthenia; Translations: [Fatigue] 12-19-2023 Episodic Mood disorders (11 sources) Depressive disorder 02-12-2021 Chronic Other diseases of kidney and ureters (1 source) Urinary tract obstruction; Translations: [Other obstructive and reflux uropathy] Onset: 3 Episodic Other ear and sense organ disorders (4 sources) Impacted cerumen 12-12-2023 Episodic Other gastrointestinal disorders (4 sources) Abdominal bloating 12-12-2023 Episodic Other nervous system disorders (4 sources) Sensation of being cold 12-19-2023 Episodic Other nutritional; endocrine; and metabolic disorders (4 sources) Weight loss 12-12-2023 Episodic Other screening for suspected conditions (not mental disorders or infectious disease) (20 sources) Raised prostate specific antigen; Translations: [Elevated prostate specific antigen [PSA]] Onset: 2 Episodic Otitis media and related conditions (6 sources) Finding of fluid behind tympanic membrane; Translations: [Otitis media of left ear] 01-15-2024 Episodic Residual codes; unclassified (4 sources) Family history of cancer; Translations: [Family history of malignant neoplasm of prostate] Onset: 2 Episodic Residual codes; unclassified (11 sources) Family history of prostate cancer 01-26-2022 Episodic Screening and history of mental health and substance abuse codes (3 sources) Ex-smoker 01-24-2024 Episodic Unclassified (3 sources) CONTACT W/AND (SUSP) EXPOS COVID-19; Translations: [CONTACT W/AND (SUSP) EXPOS COVID-19] Onset: 1 Unclassified (12 sources) Patient encounter status 12-12-2023 Past or Other Problems Problem Classification Problem Date Documented Da te Episodic/Chronic Unclassified (1 source) CONTACT W/AND (SUSP) EXPOS COVID-19; Translations: [CONTACT W/AND (SUSP) EXPOS COVID-19] Onset: 10-01-2021 Results Test Name Value Interpretation Reference Range Facility Pre-Visit Planningon 024 Pre-Visit Planning Pre-Visit Planning From: April LOPEZ, Nikki To: Mary Kate Hester; Sent: 10/10/2024 13:00:25 EST Subject: Pre-Visit Planning Due Date/Time: 10/10/2024 13:00:00 EST Caller Name: NORMAJESSICA FRENCH Jade; Caller Number: Giselle , M Jayson Hartmann, *Based on your response below, can you please update the chronic problem list and address during this visit if appropriate?* During a pre-visit planning chart review, I noted the following documentation in the medical record: Problem list- Depression 12/12/2023 office note-Initial Depression Screen Score: 0 SCORE 12/20/2023 office note-Initial Depression Screen Score: 0 SCORE 01/15/2024 office note-Initial Depression Screen Score: 0 SCORE Based on your medical judgment, can you please further specify if the depression listed on the problem list? Major Depressive Disorder, Recurrent ??? Major depressive disorder, recurrent, mild ??? Major depressive disorder, recurrent, moderate ??? Major depressive disorder, recurrent, severe without mention of psychotic behavior ??? Major depressive disorder, recurrent, in partial remission ??? Major depressive disorder, recurrent, in full remission ??? Mood disorder ??? Stress reaction ??? Other (Please Specify): I can update the problem list with your specified response if you would like. In responding to this request, please exercise your independent professional judgement. The fact that a question is asked does not imply that any particular answer is desired or expected. If you have any questions, please feel free to contact me at [phone]. Thank you! Nikki Chen, BSN, RN, CCM, CCDS, CCDS-O CDI Finishing Range Supervisor [address] [address] P: [phone] F: [phone] [email or web address] [facility] Consultation Noteon 04-17-20 Consultation Note [id number]#[id number] TIFF [facility] RAD - MRI Reporton RAD - MRI Report [id number]#1.0 0TIFF [facility] Consultation Noteon 03-21-20 24 Consultation Note [id number] 0TIFF [facility] Consultation Noteon 03-13-20 24 Consultation Note [id number]#1.00 TIFF [facility] RAD - CT Reporton 02-01-2024 RAD - CT Report [id number]#1.0 0TIFF [facility] Screenson 02-01-2024 Screens [id number]#1.0 0TIFF [facility] Urology Office/Clinic Noteon 02-01-2024 Urology Office/Clinic Note Chief Complaint F/U with PSA HPI Staff Pt is here for a 16 month F/U with PSA- Did not get this done he thought it was getting done today at this appt ( But a message was left for him reminding him on 01/24) Cysto 04/18/23 Previous DX; elevated PSA, Family hx of prostate cancer, BPH,Microhematuria, * Not taking any bladder/prostate meds Could not give a urine sample Dysuria: _denies Incomplete bladder emptying: _denies Hematuria: _denies visible blood Frequency: _every 3 hours Urgency: _denies Nocturia: _occasionally (once a month) Stream: _denies hesitation, sometimes weaker stream Leaking: _denies Post void dripping: _yes Wearing pads/ Depends: _denies Urge incontinence: _denies Stress incontinence: _denies Incontinence without Sensory Awareness: _denies Abdominal pain: _denies Flank pain: _denies Sexual complaints: _denies History of Present Illness staff HPI reviewed and agree. Review of Systems PHQ Score Initial Depression Screen Score: 0 SCORE no fever, chills, malaise, myalgia. no rash/lesions. no chest pain, palpitations, or SOB. no abdominal pain, nausea, vomiting. no unilateral calf swelling, redness, pain Physical Exam Vitals & Measurements T: 37.0 ?C(Temporal Artery) HR: 88(Peripheral) BP: 128/84 HT: 71 in HT: 180 cm WT: 68.6 kg WT: 150.92 lb BMI: 21.17 General: nontoxic, NAD Mouth: moist mucosa Lungs: normal respiratory effort Cardio: regular rate, good distal perfusion Abdomen: nondistended, no suprapubic distention or tenderness, no CVA tenderness Neurologic: Grossly normal Skin: No rashes or suspicious lesions WIL: benign. no asymmetry, induration, nodules. Assessment/Plan Dr. Wang pt No sample provided for UA today. 1. Elevated PSA (R97.20: Elevated prostate specific antigen [PSA]) PSA 07/03/20 - 6.41 07/13/20 - 5.05 07/25/20 - 3.7 & 6.8% 01/29/21 - 3.6 & 6.7% 08/24/21 - 4.53 01/19/22 - 3.8 & 5.5% 01/23/23 - 4.1 No recent PSA on record. Pt did not know he needed to have this done prior to appt. I discussed the options concerning the PSA and continued monitoring, given his advancing age. He wants to continue monitoring his PSA levels for now. (see #2) -PSA to be drawn IO today, will call pt w/ results if abnl. Pt aware no news is good news. -F/u in 1 yr w/ PSA, pt knows to get blood drawn prior to next appt 2. Family hx of prostate cancer (Z80.42: Family history of malignant neoplasm of prostate) Brother recently diagnosed [1] 3. BPH with obstruction/lower urinary tract symptoms (N40.1: Benign prostatic hyperplasia with lower urinary tract symptoms) S/p Cysto 04/18/23 - Bilobar obstruction, short prostate. States he went to [facility] ER about a month ago for diverticulitis. CT AP w con 12/16/23 - Slightly enlarged prostate. Normal bladder. No renal calculi or hydro. IPSS 5, QoL 2. Not currently taking any BPH meds. Not voicing any urinary habit complaints. 4. Microhematuria (R31.29: Other microscopic hematuria) Smoker x20 yrs but quit almost [address] AP w/wo con 04/17/23 - no renal mass, obstruction, or calcification; no visible focal wall thickening, lesion, or calculus. S/p Cysto 04/18/23 - No bladder tumors. Cytology - Atypical urothelial cells. FISH - neg. Denies gross hematuria. -Cont routine UAs and sx monitoring. Pt knows to notify the office if he were to experience gross hematuria or clots. Follow-up With When Contact Information ARVIND CHANG, PATY Sutton, URL [address] [place] [address] [phone] Additional Instructions: 1 yr w/ PSA Patient Education Benign Prostatic Hyperplasia Documentation recorded by the ramosiblavelle Bradley accurately reflects the services(s) I performed and decisions made by me. Authenticated by Paty Samuels PA-C on 01/31/2024 11:57:17. I, Veronica Kirk, personally scribed for Paty Samuels PA-C on 01/31/2024 11:53:18. . Problem List/Past Medical History Ongoing Bloating BPH with obstruction/lower urinary tract symptoms Cerumen impaction Cold feeling Depression Elevated PSA Family hx of prostate cancer Fatigue Fluid level behind tympanic membrane of both ears Former smoker GERD (gastroesophageal reflux disease) Left otitis media LLQ pain Microhematuria Screening for hyperlipidemia Screening for thyroid disorder Weakness Weight loss Wellness examination Historical No qualifying data Procedure/Surgical History Cystoscopy (04/18/2023), Tonsillotomy. Medications Flonase 0.05 mg/inh [place], 2 spray(s), Nasal, Daily Allergies No Known Medication Allergies Social History Alcohol - Low Risk, 02/16/2021 Tobacco Former smoker, quit more than 30 days ago, quit 1983 Tobacco Use:. Never Smokeless Tobacco Use:. Household tobacco concerns: No., 01/31/2024 Family History Cancer: Father. Hypertension: Brother. Prostate cancer: Brother. Immunizations Vaccine Date Stat (more content not included)... [facility] Comment on above: Result Comment: Elec tronically Signed By: PATY SAMUELS PA-C\.br\Date and Time Signed: 02/01/24 11:17 EDT Ambulatory Visit Summaryon 0 01-31-2024 Ambulatory Visit Summary FRENCH ALBA :1945 Visit Date:01/31/2024 Ambulatory Visit Instructions Your Diagnosis Elevated PSA Family hx of prostate cancer BPH with obstruction/lower urinary tract symptoms Microhematuria Your Care Team Attending Physician - PATY SAMUELS PA-C Primary Care Physician - Mary Kate Hester This Is Your Medications List Contact prescribing physician if questions or concerns fluticasone nasal (Flonase 0.05 mg/inh [place]) Procedures Performed Cystoscopy (04/18/2023), Tonsillotomy. Discharge Vitals Temperature (Temporal Artery) 37.0 ?C Heart Rate (Peripheral) 88 Blood Pressure 128/84 Height 180 cm Height 71 in Weight 68.6 kg Weight 150.92 lb BMI 21.17 What to do next You Need to Schedule the Following Appointments Follow Up with ARVIND CHANG, BIN LEDEZMA When: Comments: 1 yr w/ PSA Where: [address] [place] [address] [id number] Medications What How Much When Why Instructions Unchanged fluticasone nasal (Flonase 0.05 mg/ inh [place]) 2 Sprays Nasal Inhalation Every day Fluid level behind tympanic membrane of both ears Left otitis media each nostril Contact prescribing physician if questions or concerns Allergies No Known Medication Allergies Problems Ongoing - Any problem that you are currently receiving treatment for. Bloating BPH with obstruction/lower urinary tract symptoms Cerumen impaction Cold feeling Depression Elevated PSA Family hx of prostate cancer Fatigue Fluid level behind tympanic membrane of both ears Former smoker GERD (gastroesophageal reflux disease) Left otitis media LLQ pain Microhematuria Screening for hyperlipidemia Screening for thyroid disorder Weakness Weight loss Wellness examination Patient Survey You may receive a survey via text or e-mail asking about your office visit. Please share your experience with us by completing your survey. We appreciate your feedback and thank you for choosing us for your care. Education Materials Benign Prostatic Hyperplasia Benign prostatic hyperplasia (BPH) is an enlarged prostate gland that is caused by the normal aging process. The prostate may get bigger as a man gets older. The condition is not caused by cancer. The prostate is a walnut-sized gland that is involved in the production of semen. It is located in front of the rectum and below the bladder. The bladder stores urine. The urethra carries stored urine out of the body. An enlarged prostate can press on the urethra. This can make it harder to pass urine. The buildup of urine in the bladder can cause infection. Back pressure and infection may progress to bladder damage and kidney (renal) failure. What are the causes? This condition is part of the normal aging process. However, not all men develop problems from this condition. If the prostate enlarges away from the urethra, urine flow will not be blocked. If it enlarges toward the urethra and compresses it, there will be problems passing urine. What increases the risk? This condition is more likely to develop in men older than 50 years. What are the signs or symptoms? Symptoms of this condition include: ? Getting up often during the night to urinate. ? Needing to urinate frequently during the day. ? Difficulty starting urine flow. ? Decrease in size and strength of your urine stream. ? Leaking (dribbling) after urinating. ? Inability to pass urine. This needs immediate treatment. ? Inability to completely empty your bladder. ? Pain when you pass urine. This is more common if there is also an infection. ? Urinary tract infection (UTI). How is this diagnosed? This condition is diagnosed based on your medical history, a physical exam, and your symptoms. Tests will also be done, such as: ? A post-void bladder scan. This measures any amount of urine that may remain in your bladder after you finish urinating. ? A digital rectal exam. In a rectal exam, your health care provider checks your prostate by putting a lubricated, gloved finger into your rectum to feel the back of your prostate gland. This exam detects the size of your gland and any abnormal lumps or growths. ? An exam of your urine (urinalysis). ? A prostate specific antigen (PSA) screening. This is a blood test used to screen for prostate cancer. ? An ultrasound. This test uses sound waves to electronically produce a picture of your prostate gland. Your health care provider may refer you to a specialist in kidney and prostate diseases (urologist). How is this treated? Once symptoms begin, your health care provider will monitor your condition (active surveillance or watchful waiting). Treatment for this condition will depend on the severity of your condition. Treatment may include: ? Observation and yearly exams. This may be the only treatment needed if your condition and sympt (more content not included)... [facility] CHEMISTRYOrdered By: SYSTEM SYSTEM on 01-31-2024 Prostate specific Ag [Mass/Vol] 5.2 ng/mL High 0.1 - 3.5 ng/mL [employer] Comment on above: Interpretive Data: T he concentration of PSA determined by different manufacturers can vary due to differences in assay methods and reagent specificity. Values obtained from different assay methods cannot be used interchangeably. The methodology used for this result was chemiluminescence using [employer] Ember Hybritech PSA reagent. PSA Totalon 01-31-2024 Prostate specific Ag [Mass/Vol] 5.2 ng/mL High 0.1-3.5 [facility] Comment on above: Result Comment: The concentration of PSA determined by different manufacturers can vary due to differences in assay methods and reagent specificity. Values obtained from different assay methods cannot be used interchangeably. The methodology used for this result was chemiluminescence using [employer]'s Access Hybritech PSA reagent. Performed By: #### 1 [id number] ####[facility] [address] [place] [address] Patient Educationon 01-31-20 24 Patient Education Urology Benign Prostatic Hyperplasia Benign prostatic hyperplasia (BPH) is an enlarged prostate gland that is caused by the normal aging process. The prostate may get bigger as a man gets older. The condition is not caused by cancer. The prostate is a walnut-sized gland that is involved in the production of semen. It is located in front of the rectum and below the bladder. The bladder stores urine. The urethra carries stored urine out of the body. An enlarged prostate can press on the urethra. This can make it harder to pass urine. The buildup of urine in the bladder can cause infection. Back pressure and infection may progress to bladder damage and kidney (renal) failure. What are the causes? This condition is part of the normal aging process. However, not all men develop problems from this condition. If the prostate enlarges away from the urethra, urine flow will not be blocked. If it enlarges toward the urethra and compresses it, there will be problems passing urine. What increases the risk? This condition is more likely to develop in men older than 50 years. What are the signs or symptoms? Symptoms of this condition include: ? Getting up often during the night to urinate. ? Needing to urinate frequently during the day. ? Difficulty starting urine flow. ? Decrease in size and strength of your urine stream. ? Leaking (dribbling) after urinating. ? Inability to pass urine. This needs immediate treatment. ? Inability to completely empty your bladder. ? Pain when you pass urine. This is more common if there is also an infection. ? Urinary tract infection (UTI). How is this diagnosed? This condition is diagnosed based on your medical history, a physical exam, and your symptoms. Tests will also be done, such as: ? A post-void bladder scan. This measures any amount of urine that may remain in your bladder after you finish urinating. ? A digital rectal exam. In a rectal exam, your health care provider checks your prostate by putting a lubricated, gloved finger into your rectum to feel the back of your prostate gland. This exam detects the size of your gland and any abnormal lumps or growths. ? An exam of your urine (urinalysis). ? A prostate specific antigen (PSA) screening. This is a blood test used to screen for prostate cancer. ? An ultrasound. This test uses sound waves to electronically produce a picture of your prostate gland. Your health care provider may refer you to a specialist in kidney and prostate diseases (urologist). How is this treated? Once symptoms begin, your health care provider will monitor your condition (active surveillance or watchful waiting). Treatment for this condition will depend on the severity of your condition. Treatment may include: ? Observation and yearly exams. This may be the only treatment needed if your condition and symptoms are mild. ? Medicines to relieve your symptoms, including: ? Medicines to shrink the prostate. ? Medicines to relax the muscle of the prostate. ? Surgery in severe cases. Surgery may include: ? Prostatectomy. In this procedure, the prostate tissue is removed completely through an open incision or with a laparoscope or robotics. ? Transurethral resection of the prostate (TURP). In this procedure, a tool is inserted through the opening at the tip of the penis (urethra). It is used to cut away tissue of the inner core of the prostate. The pieces are removed through the same opening of the penis. This removes the blockage. ? Transurethral incision (TUIP). In this procedure, small cuts are made in the prostate. This lessens the prostate's pressure on the urethra. ? Transurethral microwave thermotherapy (TUMT). This procedure uses microwaves to create heat. The heat destroys and removes a small amount of prostate tissue. ? Transurethral needle ablation (TUNA). This procedure uses radio frequencies to destroy and remove a small amount of prostate tissue. ? Interstitial laser coagulation (ILC). This procedure uses a laser to destroy and remove a small amount of prostate tissue. ? Transurethral electrovaporization (TUVP). This procedure uses electrodes to destroy and remove a small amount of prostate tissue. ? Prostatic urethral lift. This procedure inserts an implant to push the lobes of the prostate away from the urethra. Follow these instructions at home: ? Take ylxv-ajd-bnxoomm and prescription medicines only as told by your health care provider. ? Monitor your symptoms for any changes. Contact your health care provider with any changes. ? Avoid drinking large amounts of liquid before going to bed or out in public. ? Avoid or reduce how much caffeine or alcohol you drink. ? Give yourself time when you urinate. ? Keep all follow-up visits. This is important. Contact a health care provider if: ? You have unexplained back pain. ? Your symptoms do not get better with treatment. ? You develop side effects from the medicine (more content not included)... [facility] Ambulatory Visit Summaryon 0 01-15-2024 Ambulatory Visit Summary FRENCH ALBA :1945 Visit Date:01/15/2024 Ambulatory Visit Instructions Your Diagnosis Cerumen impaction Your Care Team Attending Physician - Mary Kate Hester Primary Care Physician - Mary Kate Hester Procedures Performed Cystoscopy (04/18/2023), Tonsillotomy. Discharge Vitals Blood Pressure 122/70 Height 170 cm Height 67 in Weight 65.1 kg Weight 143.22 lb BMI 22.53 What to do next Scheduled Follow-Up Appointments Monday 11:00 AM EDT With: ARVIND CHANG, PATY Sutton Where: [facility] Family Medicine Office/Clini c Noteon 01-15-2024 Family Medicine Office/Clinic Note Chief Complaint would like wax removed from ears HPI Staff French is a 78 year old male presenting for ear wax removal Bilateral ears Fevers: no Sinus congestion: no Sneezing: no Ear pain: no Ear itching, popping, fullness, ringing, muffled hearing: full, muffled hearing Ear drainage: no Swollen nodes: no Sore throat: no Ear pain worse with chewing: no Itching: no DIfficulty hearing: yes ran out of debrox, patient has been using mineral oil for a couple weeks. History of Present Illness pt presents today with c/o feeling like his ears are plugged. this has been going on for over a year. today his left ear is really bothering him Review of Systems PHQ Score Initial Depression Screen Score: 0 SCORE Physical Exam Vitals & Measurements BP: 122/70 HT: 67 in HT: 170 cm WT: 65.1 kg WT: 143.22 lb BMI: 22.53 General: alert, no acute distress ENMT: oral mucosa moist, no pharyngeal erythema or exudate, left TM and canal red, mederate amount of clear fluid noted Cardiovascular: regular rate and rhythm, normal peripheral perfusion Respiratory: Lungs CTA, respirations non labored Extremities: no deformity, no trauma Neurological: oriented x 4, LOC appropriate for age, CN II-XII intact, motor strength equal & normal bilaterally, speech normal Assessment/Plan 1. Fluid level behind tympanic membrane of both ears (H65.93: Unspecified nonsuppurative otitis media, bilateral) ENRIQUE TM moderate amount clear fluid. flonase ordered. pt encouraged to get sudafed OTC. pt states his ears have been muffled and bothering him for over a year. RTC 1 month Ordered: amoxicillin, 500 mg = 1 cap(s), Oral, TID, X 7 day(s), # 21 cap(s), Refills(s) 0, Pharmacy: [facility]/pharmacy #[id number], 170, cm, 01/15/24 11:25:00 EDT, Height/Length Dosing, 65.1, kg, 01/15/24 11:25:00 EDT, Weight Dosing fluticasone nasal, 2 spray(s), Nasal, Daily, 16 gram, Refill(s) 0, each nostril, [id number], 170, cm, 01/15/24 11:25:00 EDT, Height/Length Dosing, 65.1, kg, 01/15/24 11:25:00 EDT, Weight Dosing [facility] External Ambulatory Referral 2. Left otitis media (H66.92: Otitis media, unspecified, left ear) left ear canal and TM red. amoxicillin sent in Ordered: amoxicillin, 500 mg = 1 cap(s), Oral, TID, X 7 day(s), # 21 cap(s), Refills(s) 0, Pharmacy: [facility] #[id number], 170, cm, 01/15/24 11:25:00 EDT, Height/Length Dosing, 65.1, kg, 01/15/24 11:25:00 EDT, Weight Dosing fluticasone nasal, 2 spray(s), Nasal, Daily, 16 gram, Refill(s) 0, each nostril, [facility]/pharmacy #[id number], 170, cm, 01/15/24 11:25:00 EDT, Height/Length Dosing, 65.1, kg, 01/15/24 11:25:00 EDT, Weight Dosing [facility] External Ambulatory Referral Wears hearing aid in both ears (Z97.4: Presence of external hearing-aid) pt has not been wearing hearing aids due to the pressure he feels in his ears. 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 Medications amoxicillin 500 mg Cap, 500 mg= 1 cap(s), Oral, TID Flonase 0.05 mg/inh [place], 2 spray(s), Nasal, Daily Allergies No Known Medication Allergies Social History Alcohol - Low Risk, 02/16/2021 Tobacco Former smoker, quit more than 30 days ago Tobacco Use:. Never Smokeless Tobacco Use:. Household tobacco concerns: No., 01/15/2024 Family History Cancer: Father. Hypertension: Brother. Prostate cancer: Brother. Immunizations Vaccine Date Status Comments SARS-CoV-2 (COVID-19) mRNAMUL.[id number] 07/15/2022 Recorded SARSCoV2 mRNA(gegmjqsrn-bywi-fi cros) vac 02/14/2022 Recorded SARS-CoV-2 (COVID-19) mRNA BNT-162b2 vax 07/28/2021 Recorded 2023-01-17: TPV70 influenza virus vaccine, inactivated 07/26/2021 Recorded SARS-CoV-2 (COVID-19) mRNA BNT-162b2 vax 12/28/2020 Recorded 2023-01-17: TPV70 SARS-CoV-2 (COVID-19) mRNA BNT-162b2 vax 12/07/2020 Recorded 2023-01-17: TPV70 influenza virus vaccine, inactivated 08/19/2020 Recorded influenza virus vaccine, inactivated 11/08/2019 Recorded [facility] Comment on above: Result Comment: Elec tronically Signed By: Mary Kate Hester\.br\Date and Time Signed: 01/15/24 12:39 EDT Physician Referralon 024 Physician Referral [id number]. 00TIFF [facility] EBV Antibody Profileon 12-21 EBV capsid IgG IA Qn (S) >600.0 High 0.0-17.9 [facility] Comment on above: Result Comment: Nega tive <18.0 Equivocal 18.0 - 21.9 Positive >21.9 Performed By: #### 2 794469, 2285682, [id number], 0779878, 1782556, [id number], 7481665, 69713641, 2650084 ####[facility] [address] [place] [address] EBV capsid IgM IA Qn (S) <36.0 Invalid Interpretation Code 0.0-35.9 [facility] Comment on above: Result Comment: Nega tive <36.0 Equivocal 36.0 - 43.9 Positive >43.9 Performed By: #### 2 118317, 1014970, [id number], 2978283, 4872263, [id number], 4607279, 92660003, 6931160 ####[facility] [address] [place] [address] EBV nuclear IgG IA Qn (S) >600.0 High 0.0-17.9 [facility] Comment on above: Result Comment: Nega tive <18.0 Equivocal 18.0 - 21.9 Positive >21.9 Performed By: #### 2 039325, 7239181, [id number], 3685024, 3184371, [id number], 9493803, 03183219, 0888864 ####[facility] [address] [place] [address] Service comment (Unsp spec) [Interp] Comment Invalid Interpretation Code [facility] Comment on above: Result Comment: EBV Interpretation Chart [place]: Antibody Present + Antibody Absent - Interpretation VCA-IgM VCA-IgG EBNA-IgG No previous infection/ - - - Susceptible Primary infection (new + + - or recent) Past Infection +or- + + See comment below* + - - *Results indicate infection with EBV at some time however cannot predict the timing of the infection since antibodies to EBNA usually develop after primary infection or, alternatively, approximately 5-10% of patients with EBV never develop antibodies to EBNA. Performed at: [facility] [id number] PhD Samantha Duarte Performed By: #### 2 796465, 9560375, [id number], 1046745, 1431144, [id number], 3952788, 69520421, 7494184 ####[facility] [address] [place] [address] T3 Freeon 12-21-2023 Free T3 [Mass/Vol] 2.5 pg/mL Invalid Interpretation Code 2.0-4.4 [facility] Comment on above: Result Comment: [facility]f [facility]med at: [facility] [id number] PhD Samantha Duarte Performed By: #### 2 808797, 2259632, [id number], 7575755, 6634233, [id number], 6487347, 93467113, 0763509 ####[facility] [address] [place] [address] Family Medicine Office/Clini c Noteon 12-20-2023 Family Medicine Office/Clinic Note Chief Complaint ED Follow up HPI Staff Patient presents for ED follow up from [facility] 12/16/2023 DaughterLinsey is present with patient. ER followup: Hospital: [facility] Visit date: 12/16/2023 Symptoms the patient presented with: weakness Current concerns: weakness, fatigue, and cold has returned. No appetite. History of Present Illness pt presents today for ER follow up. shortly after last visit he became very weak and went to hospital. labs and CT scans were negative Review of Systems PHQ Score Initial Depression Screen Score: 0 SCORE ROS - Provider Constitutional: no fever, yes chills, no sweats, yes fatigue weakness Respiratory: no shortness of breath, no cough, no orthopnea, no wheezing. Cardiovascular: no chest pain, no palpitations, no edema. Neurologic: no headache, no dizziness, no numbness, no weakness. Physical Exam Vitals & Measurements HR: 87(Peripheral) BP: 118/70 SpO2: 97% HT: 67 in HT: 170 cm WT: 64.3 kg WT: 141.46 lb BMI: 22.25 General: alert, no acute distress ENMT: oral mucosa moist, no pharyngeal erythema or exudate Cardiovascular: regular rate and rhythm, normal peripheral perfusion Respiratory: Lungs CTA, respirations non labored Extremities: no deformity, no trauma Neurological: oriented x 4, LOC appropriate for age, CN II-XII intact, motor strength equal & normal bilaterally, speech normal Assessment/Plan 1. Fatigue (R53.83: Other fatigue) pt is very fatigued and weak. will check a few extra labs today. he was referred to [facility] for weight loss and he has never had a colonoscopy. encouraged pt to increase protein intake and keep hydrated. Ordered: ciprofloxacin, 500 mg = 1 tab(s), Oral, q12hr, X 7 day(s), # 14 tab(s), Refills(s) 0, Pharmacy: [facility]acy #[id number], 169.5, cm, 12/12/23 9:37:00 EST, Height/Length Dosing, 66.4, kg, 12/12/23 9:37:00 EST, Weight Dosing metronidazole, 500 mg = 1 tab(s), Oral, q8hr, X 7 day(s), # 21 tab(s), Refills(s) 0, Pharmacy: [facility]/pharmacy #[id number], 169.5, cm, 12/12/23 9:37:00 EST, Height/Length Dosing, 66.4, kg, 12/12/23 9:37:00 EST, Weight Dosing Amylase Level Body Mass Index (BMI) documented 3008F Current tobacco non-user 1036F Depression Screening Negative 3352F EBV Antibody Profile Ferritin Free T4 HgbA1c Iron Level Lipase Level Medication list documented in medical record 1159F Patient screen for fall risk: no falls in last year or 1 fall with no injury in last year 1101F T3 Free TIBC Calculated 2. Weakness (R53.1: Weakness) still feeling weak but it is improving slowly. will check some extra labs today. Ordered: Amylase Level Body Mass Index (BMI) documented 3008F Current tobacco non-user 1036F Depression Screening Negative 3352F EBV Antibody Profile Ferritin Free T4 HgbA1c Iron Level Lipase Level Medication list documented in medical record 1159F Patient screen for fall risk: no falls in last year or 1 fall with no injury in last year 1101F T3 Free TIBC Calculated 3. Cold feeling (R68.89: Other general symptoms and signs) pt states he has times that he is freezing cold and can not get warm. this will last for a couple of hours. Ordered: Amylase Level Body Mass Index (BMI) documented 3008F Current tobacco non-user 1036F Depression Screening Negative 3352F EBV Antibody Profile Ferritin Free T4 HgbA1c Iron Level Lipase Level Medication list documented in medical record 1159F Patient screen for fall risk: no falls in last year or 1 fall with no injury in last year 1101F T3 Free TIBC Calculated 4. Weight loss (R63.4: Abnormal weight loss) pt continues to lose weight. was on a clear liquid diet for a week due to diverticulosis flare up. is starting to eat 3 meals a day again and drinking protein shakes as well Ordered: ciprofloxacin, 500 mg = 1 tab(s), Oral, q12hr, X 7 day(s), # 14 tab(s), Refills(s) 0, Pharmacy: [facility]/pharmacy #[id number], 169.5, cm, 12/12/23 9:37:00 EST, Height/Length Dosing, 66.4, kg, 12/12/23 9:37:00 EST, Weight Dosing metronidazole, 500 mg = 1 tab(s), Oral, q8hr, X 7 day(s), # 21 tab(s), Refills(s) 0, Pharmacy: [facility]/pharmacy #[id number], 169.5, cm, 12/12/23 9:37:00 EST, Height/Length Dosing, 66.4, kg, 12/12/23 9:37:00 EST, Weight Dosing Amylase Level Body Mass Index (BMI) documented 3008F Current tobacco non-user 1036F Depression Screening Negative 3352F EBV Antibody Profile Ferritin Free T4 HgbA1c Iron Level Lipase Level Medication list documented in medical record 1159F Patient screen for fall risk: no falls in last year or 1 fall with no injury in last year 1101F T3 Free TIBC Calculated Follow-up No qualifying data available Problem List/Past Medical History Ongoing 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 [facility] Comment on above: Result Comment: Elec tronically Signed By: Mary Kate Hester\.br\Date and Time Signed: 12/20/23 08:21 EST Reminderson 12-20-2023 Reminders - From: Mary Kate Hester To: [facility] - Clinical; Sent: 12/20/2023 12:46:53 EST Show up: 12/20/2023 12:47:00 EST Subject: Ambulatory Reminder Due Date/Time: 12/21/2023 12:46:00 EST Additional labs were normal. Was he able to get scheduled with [facility] yet? Results: Date Result Name Ind Value Ref Range 12/19/2023 15:56 Amylase Lvl 51 unit/L (25 - 157) 12/19/2023 15:56 Lipase Lvl 27 unit/L (13 - 58) 12/19/2023 15:56 Hgb A1C % 5.7 % ( - <=5.9) 12/19/2023 15:56 Iron 76 mcg/dL (35 - 153) 12/19/2023 15:56 Transferrin ((L)) 191 mg/dL (200 - 370) 12/19/2023 15:56 TIBC 267 mcg/dL (250 - 400) 12/19/2023 15:56 T4 Free 0.86 ng/dL (0.58 - 1.64) 12/19/2023 15:56 Ferritin Lvl 119 ng/mL (24 - 336) From: Roslyn Braden ([facility] - Clinical) To: [facility] - Clinical; Sent: 12/20/2023 12:52:58 EST Show up: 12/20/2023 12:52:00 EST Subject: RE: Ambulatory Reminder Attempted to call patient, no answer. Left voicemail for patient to return call. From: Pauline Gregory ([facility] - Clinical) To: Mary Kate Hester; Sent: 12/20/2023 13:51:35 EST Show up: 12/20/2023 13:51:00 EST Subject: RE: Ambulatory Reminder Pt. called and given information. Verbalized understanding. Pt said he was waiting to see what his lab results were, and will call this afternoon to schedule /[facility] Ambulatory Visit Summaryon 0 12-19-2023 Ambulatory Visit Summary FRENCH ALBA :1945 Visit Date:12/19/2023 Ambulatory Visit Instructions Your Diagnosis Fatigue Weakness Cold feeling Weight loss Your Care Team Attending Physician - Mary Kate Hester Primary Care Physician - Mary Kate Hester Procedures Performed Cystoscopy (04/18/2023), Tonsillotomy. Discharge Vitals Heart Rate (Peripheral) 87 Blood Pressure 118/70 Height 170 cm Height 67 in Weight 64.3 kg Weight 141.46 lb BMI 22.25 What to do next Scheduled Follow-Up Appointments Monday 11:00 AM EDT With: PATY SAMUELS PA-C Where: [facility]ty [facility] Amylaseon 12-19-2023 Amylase [Catalytic activity/Vol] 51 U/L Normal 25-157 [facility] Comment on above: Performed By: #### 2 639327, 2506408, [id number], 8923708, 4684939, [id number], 4018989, 38919134, 6683398 ####[facility] [address] [place] [address] CHEMISTRYOrdered By: SYSTEM SYSTEM on 12-19-2023 Amylase [Catalytic activity/Vol] 51 U/L Normal 25 - 157 unit/L Remisol Chem Ferritin Lvl 119 ng/mL Normal 24 - 336 ng/mL Remisol Chem Free T4 [Mass/Vol] 0.86 ng/dL Normal 0.58 - 1. 64 ng/dL Remisol Chem Iron [Mass/Vol] 76 ug/dL Normal 35 - 153 mcg/dL Remisol Chem Lipase Lvl 27 unit/L Normal 13 - 58 unit/L Remisol Chem TIBC 267 ug/dL Normal 250 - 400 mcg/dL Remisol Chem Transferrin [Mass/Vol] 191 mg/dL Low 200 - 370 mg/dL Remisol Chem CHEMISTRYOrdered By: Rehan Kelly on 12-19-2023 HbA1c (Bld) [Mass fraction] 5.7 % Normal <=5.9% [facility] ChemAutoSS Ferritinon 12-19-2023 Ferritin Lvl 119 ng/mL Normal 24-336 [facility] Comment on above: Performed By: #### 2 290421, 9421938, 078396651, 1581666, 7241734, [id number], 7351317, 61537824, 1339671 ####[facility] [address] [place] [address] Free T4on 12-19-2023 Free T4 [Mass/Vol] 0.86 ng/dL Normal 0.58-1.64 [facility] Comment on above: Performed By: #### 2 972098, 5041728, 999508232, 1638440, 7736484, 3551405277, 8197416, 80349259, 8553257 ####[facility] [address] [place] [address] ZtuF5bmh 12-19-2023 HbA1c (Bld) [Mass fraction] 5.7 % Normal <=5.9 [facility] Comment on above: Performed By: #### 2 757122, 1162178, 895998741, 1586098, 0362860, 5544582403, 1432779, 22284737, 8251012 ####[facility] [address] [place] [address] Ironon 12-19-2023 Iron 76 microgram/dL Normal 35-153 [facility] Comment on above: Performed By: #### 2 119580, 1343203, 470304279, 4488203, 8331663, [id number], 4912925, 49479390, 4539340 ####[facility] [address] [place] [address] Lipase Levelon 12-19-2023 Lipase Lvl 27 unit/L Normal 13-58 [facility] Comment on above: Performed By: #### 2 988021, 5416165, 863625613, 3424559, 3324971, 8695514994, 4915878, 16515450, 3854925 ####[facility] [address] [place] [address] TIBC Calculatedon 12-19-2023 TIBC 267 microgram/dL Normal 250-400 [facility] Comment on above: Performed By: #### 2 149339, 5929522, 707728924, 1514710, 5992720, 4859704610, 3430080, 58570836, 3876505 ####[facility] [address] [place] [address] Transferrin [Mass/Vol] 191 mg/dL Low 200-370 [facility] Comment on above: Performed By: #### 2 501008, 3536830, 004504896, 2973370, 0360964, 4018403715, 0784639, 37087659, 8426355 ####[facility] [address] [place] [address] ED Note-Physicianon 12-18-19 ED Note-Physician [id number]#1.0 0TIFF [facility] RAD - CT Reporton 12-18-20[address] - [address] Report [id number]#1.0 0TIFF [facility] RAD - MISCon 12-18-2023 RAD - MISC [id number]#1.0 0TIFF [facility] Lab Reportson 12-14-2023 Lab Reports [id number]#1.0 0TIFF [facility] Ambulatory Visit Summaryon 0 12-12-2023 Ambulatory Visit Summary FRENCH ALBA :1945 Visit Date:12/12/2023 Ambulatory Visit Instructions [...] Monday 8:40 AM EDT With: ARVIND CHANG, PATY Sutton Where: [facility] Family Medicine Office/Clini c Noteon 12-12-2023 Family Medicine Office/Clinic Note HPI Staff French is a 78 year old male presenting [...] like to see ENT someone close to [facility] GI: Onset 10 days ago started to [...] day(s), # 14 tab(s), Refills(s) 0, Pharmacy: [facility]/pharmacy #[id number], 169.5, cm, 12/12/23 9:37:00 EST, Height/Length Dosing, 66.4, kg, 12/12/23 9:37:00 EST, Weight Dosing metronidazole, 500 mg = 1 tab(s), Oral, q8hr, X 7 day(s), # 21 tab(s), Refills(s) 0, [facility] 169.5, cm, 12/12/23 9:37:00 EST, [...] day(s), # 14 tab(s), Refills(s) 0, Pharmacy: [facility]/pharmacy #6177, 169.5, cm, 12/12/23 9:37:00 EST, Height/Length Dosing, 66.4, kg, 12/12/23 9:37:00 EST, Weight Dosing metronidazole, 500 mg = 1 tab(s), Oral, q8hr, X 7 day(s), # 21 tab(s), Refills(s) 0, [facility], 169.5, cm, 12/12/23 9:37:00 EST, Height/Length Dosing, 66.4, kg, 12/12/23 9:37:00 EST, Weight Dosing CBC w/ Auto Diff Comprehensive Metabolic Panel [facility] External Ambulatory Referral Lipid Panel Thyroid Stimulating Hormone 4. LLQ pain (R10.32: Left lower quadrant pain) pt c/o LLQ pain for about 10 days, also having low grade fever. Ordered: ciprofloxacin, 500 mg = 1 tab(s), Oral, q12hr, X 7 day(s), # 14 tab(s), Refills(s) 0, Pharmacy: [facility]/pharmacy #6177, 169.5, cm, 12/12/23 9:37:00 EST, Height/Length Dosing, 66.4, kg, 12/12/23 9:37:00 EST, Weight Dosing metronidazole, 500 mg = 1 tab(s), Oral, q8hr, X 7 day(s), # 21 tab(s), Refills(s) 0, Pharmacy: [facility]/pharmacy #6177, 169.5, cm, 12/12/23 9:37:00 EST, Height/Length Dosing, 66.4, kg, 12/12/23 9:37:00 EST, Weight Dosing CBC w/ Auto Diff Comprehensive Metabolic Panel [facility] External Ambulatory Referral Lipid Panel Thyroid Stimulating Hormone 5. Weight loss (R63.4: Abnormal weight loss) see above Ordered: ciprofloxacin, 500 mg = 1 tab(s), Oral, q12hr, X 7 day(s), # 14 tab(s), Refills(s) 0, Pharmacy: [facility]/pharmacy #[id number], 169.5, cm, 12/12/23 9 (more content not included)... [facility] Comment on above: Result Comment: Elec tronically Signed By: Mary Kate Hester\.br\Date and Time Signed: 12/12/23 11:15 EST Physician Referralon 024 Physician Referral [id number]#1. 00TIFF [facility] URINALYSISOrdered By: Natalya Hernandez on 01-24-2023 Bilirubin [...] AM) Normal Negative [facility] UA Auto SS Bent.plasma/Lithiu m.RBC (Bld) [Mass ratio] 4-20 /HPF Normal 0-3/HPF [facility] UA Auto SS Mucus Ql (Urine sed) Trace (01/24/23 11:43 AM) Normal [facility] UA Auto SS Nitrite Ql (U) Negative (01/24/23 11:43 AM) Normal Negative [facility] UA Auto SS pH (U) 6.5 *NA* (01/24/23 11:43 AM) Invalid Interpretation Code 5.0 - 9.0 [facility] Auto SS Protein (U) [Mass/Vol] Negative (01/24/23 11:43 AM) Normal Negative [facility] UA Auto SS Specific gravity (U) [Rel density] 1.025 *NA* (01/24/23 11:43 AM) Invalid Interpretation Code 1.005 - 1.030 [facility] Auto SS UA Spec Desc Random Urine (01/24/23 11:43 AM) Normal [facility] Auto SS Urobilinogen Qn (U) 0.6095633 {Mamadou'U}/dL Normal 0.0 - 1.0 EU/dL [facility] UA Auto SS WBC Auto Ql (U) Negative (01/24/23 11:43 AM) Normal Negative [facility] UA Auto SS WBC LM.HPF (Urine sed) [#/Area] 0-5 /HPF Normal 0-5/HPF [facility] UA Auto SS CHEMISTRYOrdered By: SYSTEM SYSTEM on 01-23-2023 Prostate specific Ag [Mass/Vol] 4.1 ng/mL High 0.1 - 3.5 ng/mL [facility] Remisol PSA, FREE AND TOTAL RATIOon 01-20-2022 % Free PSA 5.5 % Normal [facility] Comment on above: Result Comment: [...] men. Performed By: #### P SAFREE #### [facility] [address] [address] [address] Lola Hobbs Prostate specific Ag [Mass/Vol] 3.8 ng/mL Normal 0.0-4.[address] [facility] Comment on above: Result Comment: Lupe NIELSON methodology. . According to the [place] [employer], Serum PSA should decrease and [...] disease. Performed By: #### P SAFREE #### [facility] [address] [address] [address] Lola Hobbs PSA, Free 0.21 ng/mL Normal N/A [facility] Comment on above: Result Comment: Lupe NIELSON methodology. Performed By: #### P SAFREE #### [facility] [address] [place] [address] Dr. Lola Hobbs Covid-19 PCR (CVDTB)on SARS-CoV-2 (COVID-19) RNA ROBERTO+probe Ql (Unsp spec) Not detected Normal NOT DETECTED [facility] Comment on above: Result Comment: This test is not yet approved or cleared by the [place] FDA. When there are no FDA-approved or cleared tests available, and other criteria are met, FDA can make tests available under an emergency access mechanism called an Emergency Use Authorization (EUA). The EUA for this test is supported by the [employer] Manager of Health and Human Service's (HHS's) declaration [...] consistent with SARS-CoV-2. Performed By: #### C [facility] #### [facility] [address] [place] [address] Dr. Lola Hobbs Vital Signs Date Time Vital Sign Value Performing Clinician Soha france 01-31-2024 11:22-0400 Blood Pressure Location PATY SAMUELS [facility] 01-31-2024 11:22-0400 Body temperature 98.6 [degF] PATY SAMUELS [facility] 01-31-2024 11:22-0400 Diastolic blood pressure 84 mm[Hg] PATY SAMUELS [facility] 01-31-2024 11:22-0400 Heart rate 88 /min PATY SAMUELS [facility] 01-31-2024 11:22-0400 Systolic blood pressure 128 mm[Hg] PATY SAMUELS [facility] 04-18-2023 14:11-0400 Blood Pressure Location Buddy WANG [facility] 04-18-2023 14:11-0400 Diastolic blood pressure 79 mm[Hg] Buddy WANG [facility] 04-18-2023 14:11-0400 Heart rate 84 /min Buddy WANG [facility] 04-18-2023 14:11-0400 Systolic blood pressure 137 mm[Hg] Buddy WANG [facility] 01-24-2023 09:24-0400 Blood Pressure Location PATY ARVIND [facility] 01-24-2023 09:24-0400 Diastolic blood pressure 78 mm[Hg] PATY ARVIND [facility] 01-24-2023 09:24-0400 Heart rate 84 /min PATY ARVIND [facility] 01-24-2023 09:24-0400 Respiratory rate 16 /min PATY ARVIND [facility] 01-24-2023 09:24-0400 Systolic blood pressure 121 mm[Hg] PATY ARVIND [facility] 01-26-2022 11:52-0400 Blood Pressure Location PATY ARVIND [facility] 01-26-2022 11:52-0400 Diastolic blood pressure 64 mm[Hg] PATY ARVIND [facility] 01-26-2022 11:52-0400 Heart rate 68 /min PATY ARVIND [facility] 01-26-2022 11:52-0400 Respiratory rate 16 /min PATY ARVIND [facility] 01-26-2022 11:52-0400 Systolic blood pressure 128 mm[Hg] PATY SAMUELS [facility] Encounters Encounter Date Encounter Type Care Provider Facility Start: 11-12-2024 ambulatory Mary Kate L Nicki Facility: [facility] Start: 10-18-2024 ambulatory Mary Kate L Nicki Facility: [facility] Start: 10-11-2024 End: 10-11-2024 ambulatory Mary Kate L Nicki Facility:[facility] Start: 05-28-2024 End: 05-28-2024 ambulatory SERENITY H TIMMIS Not Available Start: 04-16-2024 End: 04-16-2024 ambulatory SERENITY H TIMMIS Not Available Start: 03-20-2024 End: 03-20-2024 ambulatory SERENITY H TIMMIS Not Available Start: 03-13-2024 End: 03-13-2024 ambulatory VIK BARNES Not Available Start: 01-31-2024 End: 01-31-2024 Lab Drop off PATY SAMUELS [facility] Start: 01-31-2024 End: 01-31-2024 ambulatory PATY SAMUELS Facility:[facility] Start: 01-31-2024 End: 01-31-2024 ambulatory PATY SAMUELS Facility: [facility] Start: 01-31-2024 End: 01-31-2024 Patient encounter procedure PATY SAMUELS [facility] Start: 01-15-2024 End: 01-15-2024 ambulatory Mary Kate L Nicki Facility:[facility] Start: 12-19-2023 End: 12-19-2023 Lab Drop off Mary Kate L Nicki [facility] Start: 12-19-2023 End: 12-19-2023 ambulatory Mary Kate L Nicki Facility:[facility] Start: 12-12-2023 End: 12-12-2023 ambulatory Mary Kate L Nicki Facility:[facility] Start: 12-11-2023 ambulatory PATY ARVIND [facility] Start: 04-18-2023 End: 04-18-2023 Lab Drop off Buddy WANG [facility] Start: 04-18-2023 End: 04-18-2023 Patient encounter procedure Buddy WANG [facility] Start: 01-24-2023 End: 01-24-2023 Lab Drop off PATY SAMUELS [facility] Start: 01-24-2023 End: 01-24-2023 Patient encounter procedure PATY Lavelle MESARY [facility] Start: 01-23-2023 End: 01-23-2023 Lab Drop off PATY Lavelle ARVIND [facility] Start: 01-23-2023 End: 01-23-2023 Patient encounter procedure PATY Lavelle MESARY [facility] Start: 08-23-2022 ambulatory PATY ARVIND Facility :[facility] Start: 01-26-2022 End: 01-26-2022 Patient encounter procedure PATY E ARVIND [facility] Start: 01-19-2022 End: 01-20-2022 ambulatory KIRSTIE CALDERÓN Facility:[facility] Start: 10-01-2021 End: 10-01-[address] SUSHMA BECERRA Facility:[facility] Procedures Date Procedure Procedure Detail Performing Clinician Start: 04-18-2023 Cystoscopy Buddy JHON MONTGOMERY Incision of tonsil PATYISAMAR SAMUELS Immunizations Immunization Date Immunization Notes Care Provider Dexter leavitt 07-15-2022 SARS-CoV-2 (COVID-19 ) [id number] PATY SAMUELS [facility] 02-14-2022 SARS-CoV-2 mRNA (dkcsskfmiyo-ctvu-eiyco se) vaccine PATY SAMUELS [facility] 07-28-2021 SARS-CoV-2 (COVID-19 ) mRNA BNT-162b2 vax PATY SAMUELS [facility] Comment on above: Result Comment: 2022: [id number] 07-26-2021 influenza virus vaccine, unspecified formulation PATY SAMUELS [facility] 12-28-2020 SARS-CoV-2 (COVID-19 ) mRNA BNT-162b2 vax PATY ARVIND [facility] Comment on above: Result Comment: 2022: [id number] 12-07-2020 SARS-CoV-2 (COVID-19 ) mRNA BNT-162b2 vax PATY ARVIND [facility] Comment on above: Result Comment: 2022: [id number] 08-19-2020 influenza virus vaccine, unspecified formulation PATY ARVIND [facility] 11-08-2019 influenza virus vaccine, unspecified formulation PATY ARVIND [facility] Payers Date Payer Category Payer Unknown [id number] 1957 Medicare [id number] 1957 Self-pay 1957 Unknown [id number] 1945 Unknown [id number] 2.16.84 [id number] 1945 Unknown [id number] 2.16.84 0.1.272530.3.579.2.593 1945 Unknown [id number] 2.16.84 0.1.588032.3.579.2.593 1945 Unknown [id number] 2.16.84 0.1.202707.3.579.2.1259 1947 Unknown [id number] 2.16.84 0.1.932946.3.579.2.1259 1947 Unknown [id number] 2.16.84 0.1.614853.3.579.2.1259 1947 Unknown [id number] 2.16.84 0.1.615742.3.579.2.1259 1947 Unknown [id number] 2.16.8 40.1.115738.3.579.2.727 1947 Unknown [id number] 2.16.8 40.1.321672.3.579.2.727 1947 Unknown [id number] 2.16.8 40.1.201998.3.579.2.727 1947 Unknown [id number] 2.16.8 40.1.885221.3.579.2.727 1947 Unknown [id number] 2.16.8 40.1.834285.3.579.2.727 1947 Unknown [id number] 2.16.8 40.1.662412.3.579.2.727 1947 Unknown [id number] 2.16.8 40.1.674699.3.579.2.727 1947 Unknown [id number] 2.16.8 40.1.486034.3.579.2.727 1947 Unknown [id number] 2.16.8 40.1.491025.3.579.2.727 1945 Unknown [id number] 2.16.8 40.1.679407.3.579.2.727 Social History Date Type Detail Facility Start: 01-26-2022 End: 01-31-2024 Tobacco smoking status Ex-smoker (finding) [facility] Tobacco smoking status Never [facility] Mobilligy Sex Assigned At Male [facility] Mobilligy Functional Status Date Assessment Result Facility 01-31-2024 Functional Status N/A [facility] 04-18-2023 Functional Status N/A [facility] 01-24-2023 Functional Status N/A [facility] Clinical Notes 01-26-2022 to 01-31-2024 Note Date & Type Note Facility 01-31-2024 Hospital Discharge instructions Patient Education 01/31/2024 11:52:36 Benign Prostatic Hyperplasia Benign Prostatic Hyperplasia Benign prostatic hyperplasia (BPH) is an enlarged prostate gland that is caused by the normal aging process. The prostate may get bigger as a man gets older. The condition is not caused by cancer. The prostate is a walnut-sized gland that is involved in the production of semen. It is located in front of the rectum and below the bladder. The bladder stores urine. The urethra carries stored urine out of the body. An enlarged prostate can press on the urethra. This can make it harder to pass urine. The buildup of urine in the bladder can cause infection. Back pressure and infection may progress to bladder damage and kidney (renal) failure. What are the causes? This condition is part of the normal aging process. However, not all men develop problems from this condition. If the prostate enlarges away from the urethra, urine flow will not be blocked. If it enlarges toward the urethra and compresses it, there will be problems passing urine. What increases the risk? This condition is more likely to develop in men older than 50 years. What are the signs or symptoms? Symptoms of this condition include: Getting up often during the night to urinate. Needing to urinate frequently during the day. Difficulty starting urine flow. Decrease in size and strength of your urine stream. Leaking (dribbling) after urinating. Inability to pass urine. This needs immediate treatment. Inability to completely empty your bladder. Pain when you pass urine. This is more common if there is also an infection. Urinary tract infection (UTI). How is this diagnosed? This condition is diagnosed based on your medical history, a physical exam, and your symptoms. Tests will also be done, such as: A post-void bladder scan. This measures any amount of urine that may remain in your bladder after you finish urinating. A digital rectal exam. In a rectal exam, your health care provider checks your prostate by putting a lubricated, gloved finger into your rectum to feel the back of your prostate gland. This exam detects the size of your gland and any abnormal lumps or growths. An exam of your urine (urinalysis). A prostate specific antigen (PSA) screening. This is a blood test used to screen for prostate cancer. An ultrasound. This test uses sound waves to electronically produce a picture of your prostate gland. Your health care provider may refer you to a specialist in kidney and prostate diseases (urologist). How is this treated? Once symptoms begin, your health care provider will monitor your condition (active surveillance or watchful waiting). Treatment for this condition will depend on the severity of your condition. Treatment may include: Observation and yearly exams. This may be the only treatment needed if your condition and symptoms are mild. Medicines to relieve your symptoms, including: ?Medicines to shrink the prostate. ?Medicines to relax the muscle of the prostate. Surgery in severe cases. Surgery may include: ?Prostatectomy. In this procedure, the prostate tissue is removed completely through an open incision or with a laparoscope or robotics. ?Transurethral resection of the prostate (TURP). In this procedure, a tool is inserted through the opening at the tip of the penis (urethra). It is used to cut away tissue of the inner core of the prostate. The pieces are removed through the same opening of the penis. This removes the blockage. ?Transurethral incision (TUIP). In this procedure, small cuts are made in the prostate. This lessens the prostate's pressure on the urethra. ?Transurethral microwave thermotherapy (TUMT). This procedure uses microwaves to create heat. The heat destroys and removes a small amount of prostate tissue. ?Transurethral needle ablation (TUNA). This procedure uses radio frequencies to destroy and remove a small amount of prostate tissue. ?Interstitial laser coagulation (ILC). This procedure uses a laser to destroy and remove a small amount of prostate tissue. ?Transurethral electrovaporization (TUVP). This procedure uses electrodes to destroy and remove a small amount of prostate tissue. ?Prostatic urethral lift. This procedure inserts an implant to push the lobes of the prostate away from the urethra. Follow these instructions at home: Take gihm-afh-urhmxve and prescription medicines only as told by your health care provider. Monitor your symptoms for any changes. Contact your health care provider with any changes. Avoid drinking large amounts of liquid before going to bed or out in public. Avoid or reduce how much caffeine or alcohol you drink. Give yourself time when you urinate. Keep all follow-up visits. This is important. Contact a health care provider if: You have unexplained back pain. Your symptoms do not get better with treatment. You develop side effects from the medicine you are taking. Your urine becomes very dark or has a bad smell. Your lower abdomen becomes distended and you have trouble passing urine. Get help right away if: You have a fever or chills. You suddenly cannot urinate. You feel light-headed or very dizzy, or you faint. There are large amounts of blood or clots in your urine. Your urinary problems become hard to manage. You develop moderate to severe low back or flank pain. The flank is the side of your body between the ribs and the hip. These symptoms may be an emergency. Get help right away. Call 911. Do not wait to see if the symptoms will go away. Do not drive yourself to the hospital. Summary Benign prostatic hyperplasia (BPH) is an enlarged prostate that is caused by the normal aging process. It is not caused by cancer. An enlarged prostate can press on the urethra. This can make it hard to pass urine. This condition is more likely to develop in men older than 50 years. Get help right away if you suddenly cannot urinate. This information is not intended to replace advice given to you by your health care provider. Make sure you discuss any questions you have with your health care provider. Document Revised: 05/04/2022 Document Reviewed: 05/04/2022 [employer] Patient Education 2022 [employer]. Follow Up Care 01/30/2024 17:01:46 With:ARVIND CHANG, PATY Sutton, URL Address: [address] [place] [address] [phone] When: Unknown Comments:3 yr w/ PSA [facility] [place] 04-18-2023 Hospital Discharge instructions Patient Education 04/18/2023 [...] Follow these instructions at home: Medicines Take gawe-dfz-pnohivr and prescription medicines only as told by [...] or the blood stops without treatment. Take hhmg-hhb-ewekwbo and prescription medicines only as told by your health care provider. Drink enough fluid to keep your urine pale yellow. This information is not intended to replace advice given to you by your health care provider. Make sure you discuss any questions you have with your health care provider. Document Revised: 06/16/2021 Document Reviewed: 06/16/2021 Elsevier Patient Education 2022 [employer]. [facility] [place] 01-26-2022 Hospital Discharge instructions Patient Education 01/26/2022 [...] one of these risk factors: ?Being of -[place] descent. ?Having a family history of prostate [...] you: Are older than age 55. Are -[place]. Have a father, brother, or uncle who [...] 07/27/2018 Document Revised: 09/28/2018 Document Reviewed: 07/27/2018 [employer] Patient Education 2020 [employer] Follow Up Care 08/26/2021 12:50:07 With:PATY SAMUELS PA-C, URL Address: When:3 year [facility] Evaluation + Plan note Future Appointments Appointment Date:02/01/2023 11:00:00 AM Scheduled Provider:PATY SAMUELS PA-C Location:[facility] Appointment Type:URO Office Visit Diagnostic Tests PendingPSA Free & Total 01/26/22 [facility] Evaluation + Plan note Future Appointments Appointment Date:01/24/2023 09:15:00 AM Scheduled Provider:PATY SAMUELS PA-C Location:[facility] Appointment Type:URO Office Visit [facility] Evaluation + Plan note Future Appointments Appointment Date:01/30/2024 08:30:00 AM Scheduled Provider:PATY SAMUELS PA-C Location:[facility] Appointment Type:URO Office Visit Diagnostic Tests PendingPSA Total 01/24/23 [facility] Evaluation + Plan note Future Appointments Appointment Date:01/30/2024 08:30:00 AM Scheduled Provider:PATY SAMUELS PA-C Location:[facility] Appointment Type:URO Office Visit Diagnostic Tests PendingUrine Culture 01/24/23 [facility] Evaluation + Plan note Future Appointments Appointment Date:01/30/2024 08:30:00 AM Scheduled Provider:PATY SAMUELS PA-C Location:[facility] Appointment Type:URO Office Visit [facility] Evaluation + Plan note Future Appointments Appointment Date:01/30/2024 08:30:00 AM Scheduled Provider:PATY SAMUELS PA-C Location:[facility] Appointment Type:URO Office Visit Diagnostic Tests PendingUroVysion Fish and Urine Cyto ([facility]) 04/18/23 [facility] Evaluation + Plan note Future Appointments Appointment Date:01/31/2024 11:00:00 AM Scheduled Provider:PATY SAMUELS PA-C Location:[facility] Appointment Type:URO Office Visit Diagnostic Tests PendingT3 Free 12/19/23EBV Antibody Profile 12/19/23 [facility] Hospital course Narrative No data available for this section [facility] Hospital Discharge instructions No data available for this section [facility] Progress note No data available for this section [facility] Summary Purpose Family History No Family History Records Found No data available for this section No data available for this section No data available for this section No data available for this section No Family History Records FoundNo Family History Records Found Advance Directives No Advanced Directives Records FoundNo Advanced Directives Records FoundNo Advanced Directives Records Found Additional Source Comments (unrecognized sect ion and content) No Status Records FoundNo Status Records FoundNo Status Records Found INFORMATION SOURCE (unrecogn ized section and content) DATE CREATED AUTHOR 08/24/2022 [facility] DATE CREATED AUTHOR AUTHOR'S ORGANIZ ATION 05/30/2024 [facility] dical [facility] EPIC DATE CREATED AUTHOR AUTHOR'S ORGANIZ ATION 10/12/2024 [facility] Patient Care team informatio n (unrecognized section and content) Personnel Name: KIRSTIE CALDERÓN CNP Address: Address: [address] [place] [address] Personnel Name: KIRSTIE CALDERÓN CNP Address: Address: [address] [place] [address] Personnel Name: KIRSTIE CALDERÓN CNP Address: Address: [address] [place] [address] Personnel Name: KIRSTIE CALDERÓN CNP Address: Address: [address] [place] [address] Personnel Name: KIRSTIE CALDERÓN CNP Address: Address: [address] [place] [address]- Personnel Name: KIRSTIE CALDERÓN CNP Address: Address: [address] [place] [address]- Personnel Name: Mary Kate Hester Address: Address: [address] [place] [address]- Personnel Name: Mary Kate Hester Address: Address: [address] [place] [address]- Personnel Name: Nicki MARKSPMary Kate Address: Address: [address] [place] [address]- Personnel Name: Mary Kate Hester Address: Address: [address] [place] [address]- FOR RECORDS PERTAINING TO PATIENTS WHO ARE [...] BE BASED ON THE PRIMARY CLINICAL RECORDS. [facility] [employer] [facility]. provides no warranty or guarantee of the accuracy or completeness of information in this document.
== END 2024-10-15 14:03 | disposition home or self-care (01) ==
LOC: RAD 14:03
PROVIDERS: PCP Nurse Practitioner; Visit Provider Nurse Practitioner
DX: M25.552 Pain in left hip (principal); M54.50 Low back pain, unspecified; M51.369 Other intervertebral disc degeneration, lumbar region without mention of lumbar back pain or lower extremity pain
CPT/HCPCS: 72110; 73502